=== PATIENT | female | born 1955 | race Caucasian/White ===

== ENCOUNTER 2021-03-12 16:16 | Inpatient (IN) ==
[2021-03-12] MEDS: CARDIZEM 125 MG in SODIUM CHLORIDE 100ML 100 ML IV SCH (16:40)
[2021-03-12 16:46] LABS: ABG O2 HGB 93.8 % (95-100); ABG PH 7.47 (7.35-7.45); COHb 0 (0.5-1.5); HCO3 24.7 (21-28); MetHb 0.5 (0-1.5); TCO2 25.7 (19-24); sO2 95.5 % (94-98); tHb 12.5 g/dl (11.7-17.4)
[2021-03-12] MEDS ORDERED: CARDIZEM INJ IVP ONE (17:11)
[2021-03-12] MEDS ORDERED: ADENOCARD IVP ONE (17:11)
[2021-03-12 17:34] LABS: BASOPHILS % (AUTO) 0.4 % (0.0-3.0); EOSINOPHILS # (AUTO) 0.3 K/ul (0.0-0.7); HEMATOCRIT 40.8 % (37.0-47.0); HEMOGLOBIN 12.8 g/dl (12.0-16.0); IMMATURE GRANULOCYTE % (AUTO) 0.1 % (0.0-5.0); LYMPHOCYTES # (AUTO) 2.7 K/uL (0.60-3.4); LYMPHOCYTES % (AUTO) 36.9 (10.0-50.0); MEAN CORPUSCULAR HEMOGLOBIN 27.3 pg (27.0-31.0); MEAN CORPUSCULAR HGB CONC 31.4 (31.8-35.4); MONOCYTES # (AUTO) 0.8 K/uL (0.4-2.0); MONOCYTES % (AUTO) 10.6 (0-10); NEUTROPHILS # (AUTO) 3.4 K/ul (2.0-6.9); PLATELET COUNT 184 10^3/uL (140-440); RDW COEFFICIENT OF VARIATION 14.8 % (11.6-14.8); RED BLOOD COUNT 4.69 10^6/ul (4.20-5.40); WHITE BLOOD COUNT 7.18 K/ul (4.6-10.2)
[2021-03-12 17:38] LABS: MAGNESIUM 1.67 mg/dL (1.6-2.3)
[2021-03-12 17:40] LABS: ALANINE AMINOTRANSFERASE 21.5 U/L (0-35); ALBUMIN 4.46 g/dL (3.5-5.0); ASPARTATE AMINO TRANSFERASE 32.8 U/L (14-36); BILIRUBIN,TOTAL 0.51 mg/dL (0.2-1.3); BLOOD UREA NITROGEN 14.7 mg/dL (7-17); CALCIUM 9.77 mg/dL (8.4-10.2); CARBON DIOXIDE 27.6 mmol/L (22-30.0); CHLORIDE 102.6 mmol/L (98-107); CREATINE KINASE 27.1 U/L (30-135); CREATININE 0.84 mg/dL (0.60-1.30); GLUCOSE 92.7 mg/dL (74-106); POTASSIUM 3.7 mmol/L (3.5-5.1); SODIUM 138.8 mmol/L (134.5-145); TOTAL PROTEIN 7.78 g/dL (6.3-8.2)
[2021-03-12 17:51] LABS: TROPONIN I < 0.012 ng/ml (0.0000-0.120)
[2021-03-12] MEDS ORDERED: CARDIZEM INJ IVP STA (18:16)
--- NOTE | 2021-03-12 18:22 | ED.PDOC ---
General <MÓNICA SIMENTAL DO - Last Filed: 03/12/21 20:00> ED Provider: Dr. MÓNICA SIMENTAL Chief Complaint: Shortness of Air Stated Complaint: Having rapid Heart rate; Recently has tx for Covid. Appears in SVT 12 lead EKG-Afib RVR 180 Time Seen by Provider: 03/12/21 16:43 Mode of Arrival: Walk-In Information Source: Patient Primary Care Provider: AMBER DE Referred to ED by: PCP Nursing and Triage Documentation Reviewed and Agree: Yes Does patient meet sepsis criteria?: No System Inflammatory Response Syndrome: Pulse >90 BPM and Resp >20/Minute Sepsis Protocol: For patient's 13 years and over: Temp is 96.8 and below OR 101 and greater Pulse >90 BPM Resp >20/minute Acutely Altered Mental Status Are patient's symptoms suggestive of a new infection, such as: -Pneumonia -Skin, Soft Tissue -Endocarditis -UTI -Bone, Joint Infection -Implantable Device -Acute Abdominal Infection -Wound Infection -Meningitis -Blood Stream Catheter Infection -Unknown Cardiovascular Complaint Exam <MÓNICA SIMENTAL DO - Last Filed: 03/12/21 20:00> Palpitations Complaint/Exam Onset/Duration: 6 hrs Symptoms Are: Still present Timing: Constant Initial Severity: Severe Current Severity: Severe Character: Reports Irregular and Pounding Aggravating: Reports Exertion Alleviating: Reports None Associated Signs and Symptoms: Reports Lightheadedness, Dizziness, Chest pain and Shortness of breath Cardiac Risk Factors: Reports Hypertension Pulmonary Embolism Risk Factors: Reports None Atrial Fibrillation Risk Factors: Reports Hypertension and COPD Thyroid Exam: Normal Differential Diagnoses: Panic Disorder, Hyperventilation and Paroxysmal SVT Quality Indicators for AMI: EKG in 10min. Review of Systems <DO Temitope SANTILLAN Last Filed: 03/12/21 20:00> Review Of Systems Constitutional: Reports Malaise and Weakness Eyes: Reports No symptoms and Blurred vision Ears, Nose, Mouth, Throat: Reports No symptoms Respiratory: Reports Cough, Short of air and Wheezing Cardiac: Reports Chest pain, Irregular heart rate, Lightheadedness and Palpitations GI: Reports No symptoms : Reports No symptoms Musculoskeletal: Reports No symptoms Skin: Reports No symptoms Neurological: Reports Anxiety Endocrine: Reports No symptoms All Other Systems: Reviewed and Negative PFSH <DO Temitope SANTILLAN Last Filed: 03/12/21 20:00> Medical History Depression DJD (degenerative joint disease) DM type 2 (diabetes mellitus, type 2) Dysfunction of both eustachian tubes Dyslipidemia (high LDL; low HDL) Fatigue RAYSA (generalized anxiety disorder) HTN (hypertension) Neuropathy Positional vertigo Vaginal bleeding Vertigo Family History Mother Cancer BROTHER Cancer of brain Social History Alcohol intake: unknown Substance use type: does not use Lives independently: Yes Daycare: no daycare Current gender identity: female Seatbelt use: always Water heater temperature set < 120 degrees: Yes Working smoke detector in home: Yes Fire extinguisher in home: Yes Carbon monoxide detector in home: Yes Surgical History H/O gastric bypass H/O ventral hernia repair Female Reproductive History Menstrual Hx Hysterectomy: No Hx Tubal Ligation: No Physical Exam <MÓNICA SIMENTAL DO - Last Filed: 03/12/21 20:00> Physical Exam Appearance: Reports Ill-appearing and Obese Ill-appearing: Moderate Pain Distress: Moderate Eyes: Reports MICKY, EOMI and Conjunctiva clear ENT: Reports Ears normal, Nose normal and Oropharynx normal Neck: Supple Respiratory: Reports Airway patent, Breath sounds clear and Respirations nonlabored Cardiovascular: Reports RRR, Irregular rhythm and Tachycardia GI/: Reports Soft, Nontender, No masses, Bowel sounds normal, No Organomegaly, Tender and Bowel sounds hypoactive Musculoskeletal: Reports Normal strength, ROM intact, No calf tenderness and Edema Skin: Reports Warm, Dry and Normal color Neurological: Reports Sensation intact, Motor intact, Reflexes intact, Cranial nerves intact and Alert Psychiatric: Reports Affect appropriate, Mood appropriate and Anxious Interpretation <DO Temitope SANTILLAN Last Filed: 03/12/21 20:00> Radiology Interpretation Radiology Results: No acute changes Exam Interpreted: Portable CXR EKG Interpretation Time of EKG #1: 16:19 Rate: Tachy [place]: Left ST Segment: Normal Interpretation: SVT/afib RVR Physician Notification <DO Temitope SANTILLAN Last Filed: 03/12/21 20:00> Case Discussed Physician Notified: Dr De-agreed to admit Time of Notification: 17:00 <HAKAN VELIZ MD - Last Filed: 03/12/21 22:51> Case Discussed Physician Notified: Dr De Agreed to admit Time of Notification: 21:00 (Patient is DNI so can be admitted here) <HAKAN VELIZ MD - Last Filed: 03/12/21 22:51> Critical Care Note Total Critical Care Time (mins): 60 Course <MÓNICA SIMENTAL DO - Last Filed: 03/12/21 20:00> Course Hematology/Chemistry: 03/12/21 16:48 03/12/21 16:48 Orders, Labs, Meds: Lab Review 03/12/21 03/12/21 03/12/21 16:40 16:48 16:48 WBC 7.18 RBC 4.69 Hgb 12.8 Hct 40.8 MCV 87.0 MCH 27.3 MCHC 31.4 L RDW Coeff of Arnoldo 14.8 Plt Count 184 Immature Gran % (Auto) 0.1 Neut % (Auto) 48.0 Lymph % (Auto) 36.9 [place] % (Auto) 10.6 H Eos % (Auto) 4.0 Baso % (Auto) 0.4 Neut # (Auto) 3.4 Lymph # (Auto) 2.7 [place] # (Auto) 0.8 Eos # (Auto) 0.3 Baso # (Auto) 0.0 Immature Gran # (Auto) 0.0 APTT Puncture Site [place] Excess 1.0 O2 Saturation 95.5 ABG pH 7.47 H ABG pCO2 34.0 L ABG pO2 73.0 L ABG HCO3 24.7 ABG Total CO2 25.7 H Dyll[place] Test Pos Hemoglobin 0.5 Oxyhemoglobin 93.8 L Carboxyhemoglobin 0 L Total Hemoglobin 12.5 FiO2 % 21.0 Sodium 138.8 Potassium 3.70 Chloride 102.6 Carbon Dioxide 27.6 Anion Gap 12.30 BUN 14.7 Creatinine 0.84 Estimated GFR (MDRD) 68.00 BUN/Creatinine Ratio 17.50 Glucose 92.7 Calcium 9.77 Magnesium Total Bilirubin 0.51 AST 32.8 ALT 21.5 Alkaline Phosphatase 80.0 Total Creatine Kinase 27.1 L Troponin I Total Protein 7.78 Albumin 4.46 Globulin 3.32 Albumin/Globulin Ratio 1.34 SARS CoV-2 RNA Rapid MARY 03/12/21 03/12/21 03/12/21 16:48 16:48 17:05 WBC RBC Hgb Hct MCV MCH MCHC RDW Coeff of Arnoldo Plt Count Immature Gran % (Auto) Neut % (Auto) Lymph % (Auto) [place] % (Auto) Eos % (Auto) Baso % (Auto) Neut # (Auto) Lymph # (Auto) [place] # (Auto) Eos # (Auto) Baso # (Auto) Immature Gran # (Auto) APTT 26.2 Puncture Site Base Excess O2 Saturation ABG pH ABG pCO2 ABG pO2 ABG HCO3 ABG Total CO2 [place]yll[place] Test Hemoglobin Oxyhemoglobin Carboxyhemoglobin Total Hemoglobin FiO2 % Sodium Potassium Chloride Carbon Dioxide Anion Gap BUN Creatinine Estimated GFR (MDRD) BUN/Creatinine Ratio Glucose Calcium Magnesium 1.67 Total Bilirubin AST ALT Alkaline Phosphatase Total Creatine Kinase Troponin I < 0.012 Total Protein Albumin Globulin Albumin/Globulin Ratio SARS CoV-2 RNA Rapid MARY Negative Orders Category Date Time Status ADMIT PATIENT INPATIENT .TO [facility] (MONITORED BED) ADMISSION 03/12/21 19:41 Active ADMIT PATIENT INPATIENT .TO [facility] (MONITORED BED) ADMISSION 03/12/21 21:01 Active ABG DRAW REQUEST Stat CARDIO 03/12/21 16:41 Completed ECHOCARDIOGRAM 2D-M MODE Routine CARDIO 03/12/21 19:42 Ordered EKG-(ED ONLY) Stat CARDIO 03/12/21 17:55 Completed EKG-(ED ONLY) Stat CARDIO 03/12/21 17:56 Completed EKG-(IP & OP ONLY) Routine CARDIO 03/12/21 21:11 Ordered ACTIVITY .Early Mobilization for VTE Prevention CARE 03/12/21 19:43 Completed ACTIVITY .Up ad Amy CARE 03/12/21 21:02 Active BLOOD GLUCOSE MONITORING (MED/SURG) 0630,1100,1700,2100 CARE 03/12/21 19:43 Active INCISION/WOUND CARE Q4HR CARE 03/12/21 19:42 Active INTAKE & OUTPUT Q8HR CARE 03/12/21 21:01 Active TELEMETRY MONITORING TELE CARE 03/12/21 19:41 Active TELEMETRY MONITORING TELE CARE 03/12/21 21:03 Completed VITAL SIGNS Q4HR CARE 03/12/21 21:02 Active CARDIAC DIET DIETARY 03/12/21 Breakfast Ordered REGULAR DIET DIETARY 03/12/21 Dinner Ordered ABG COOX Stat LAB 03/12/21 16:40 Completed CBC W/ AUTO DIFF DAILY@0600 LAB 03/13/21 06:00 Ordered CBC W/ AUTO DIFF DAILY@0600 LAB 03/14/21 06:00 Ordered CBC W/ AUTO DIFF Stat LAB 03/12/21 16:48 Completed CMP [COMPREHENSIVE METABOLIC PANEL] Stat LAB 03/12/21 16:48 Completed COMPREHENSIVE METABOLIC PANEL DAILY@0600 LAB 03/13/21 06:00 Ordered COMPREHENSIVE METABOLIC PANEL DAILY@0600 LAB 03/14/21 06:00 Ordered CPK [CREATINE KINASE] Stat LAB 03/12/21 16:48 Completed CREATINE KINASE Q8H LAB 03/13/21 03:15 Ordered CREATINE KINASE Q8H LAB 03/13/21 11:15 Ordered MAGNESIUM Stat LAB 03/12/21 16:48 Completed PARTIAL THROMBOPLASTIN TIME Stat LAB 03/12/21 16:48 Completed SARS COV-2 RNA RAPID MARY Stat LAB 03/12/21 17:05 Completed TROPONIN I Q8H LAB 03/13/21 01:45 Ordered TROPONIN I Q8H LAB 03/13/21 03:15 Ordered TROPONIN I Q8H LAB 03/13/21 09:45 Ordered TROPONIN I Q8H LAB 03/13/21 11:15 Ordered TROPONIN I Stat LAB 03/12/21 16:48 Completed UA [URINALYSIS C & S IF INDICATED] Stat LAB 03/12/21 22:30 Completed Acetaminophen [Tylenol] MEDS 03/12/21 21:11 Active 650 mg PO Q4H PRN Adenosine [Adenocard] MEDS 03/12/21 17:11 Discontinued 6 mg IVP ONCE ONE Apixaban [Eliquis] MEDS 03/12/21 19:42 Discontinued 5 mg PO ONCE ONE Ceftriaxone/D5w 1 gm Premix [Rocephin 1 gm/50 ml D5w] MEDS 03/12/21 22:00 Active 1 gm in 50 ml IV DAILY Dexamethasone Sod Phosphate [Decadron] MEDS 03/12/21 21:30 Active 6 mg IVP DAILY Diltiazem HCl [Cardizem Inj] MEDS 03/12/21 17:11 Discontinued 25 mg IVP ONCE ONE Diltiazem HCl [Cardizem Inj] MEDS 03/12/21 18:16 Discontinued 40 mg IVP ONCE STA Diltiazem HCl [Cardizem] 125 mg MEDS 03/12/21 17:30 Active 0.9 % Sodium Chloride [Sodium Chloride 100Ml] 100 ml IV TITRATION Doxycycline Hyclate Inj [Doxy-100] 100 mg MEDS 03/12/21 21:30 Active 0.9 % Sodium Chloride [Sodium Chloride 100Ml] 100 ml IV Q12HR Ondansetron HCl/Pf [Zofran 4 mg/2 ml] MEDS 03/12/21 21:11 Active 4 mg IVP Q6H PRN Potassium Chloride in 0.9%NaCl [Sodium Chloride 0.9%- MEDS 03/12/21 20:00 Active KCl 20 Meq] 1,000 ml IV 30 mls/hr Sotalol HCl [Betapace] MEDS 03/13/21 09:00 Active 40 mg PO BID Sotalol HCl [Betapace] MEDS 03/12/21 19:34 Discontinued 40 mg PO ONCE STA RESUSCITATION STATUS Routine OTHERS 03/12/21 19:42 Completed RESUSCITATION STATUS Routine OTHERS 03/12/21 21:01 Ordered CHEST, 1V AP ONLY Stat RADS 03/12/21 17:[address] CHEST W/O CONTRAST Stat RADS 03/12/21 18:42 Completed Medications Generic Name Dose Route Start Last Admin Trade Name Nedq PRN Reason Stop Dose Admin Acetaminophen 650 mg 03/12/21 21:11 Acetaminophen 325 Mg Tablet PO Q4H PRN Fever and Mild Pain Dexamethasone Sodium Phosphate 6 mg 03/12/21 21:30 Dexamethasone Sod Phos 10 Mg/Ml Inj IVP DAILY MAREK Diltiazem HCl 125 mg/ Sodium 125 mls @ 5 mls/hr 03/12/21 17:30 03/12/21 17:31 Chloride IV 10 mg/hr TITRATION MAREK 10 mls/hr Titration Protocol 5 MG/HR Potassium Chloride/Sodium Chloride 1,000 mls @ 30 mls/hr 03/12/21 20:00 03/12/21 22:25 Sodium Chloride 0.9%-Kcl 20 Meq IV 30 mls/hr .[id number] MAREK Administration CEFTRIAXONE/D5W 1 GM PREMIX 1 gm in 50 mls @ 75 mls/hr 03/12/21 22:00 Rocephin 1 Gm/50 Ml D5w IV 03/15/21 21:59 DAILY MAREK Doxycycline Hyclate 100 mg/ 100 mls @ 50 mls/hr 03/12/21 21:30 Sodium Chloride IV 03/15/21 21:29 Q12HR MAREK Ondansetron HCl 4 mg 03/12/21 21:11 Ondansetron Hcl/Pf 4 Mg/2 Ml Sdv IVP Q6H PRN Nausea / Vomiting Sotalol HCl 40 mg 03/13/21 09:00 Sotalol Hcl 80 Mg Tablet PO BID MAREK Discontinued Medications Generic Name Dose Route Start Last Admin Trade Name Freq PRN Reason Stop Dose Admin Adenosine 6 mg 03/12/21 17:11 03/12/21 16:25 Adenosine 12 Mg/4 Ml Vial IVP 03/12/21 17:12 6 mg ONCE ONE Administration Apixaban 5 mg 03/12/21 19:42 Apixaban 5 Mg Tab PO 03/12/21 19:43 ONCE ONE Diltiazem HCl 25 mg 03/12/21 17:11 03/12/21 16:35 Diltiazem Hcl Inj 25 Mg/5 Ml Vial IVP 03/12/21 17:12 25 mg ONCE ONE Administration Diltiazem HCl 40 mg 03/12/21 18:16 03/12/21 18:25 Diltiazem Hcl Inj 25 Mg/5 Ml Vial IVP 03/12/21 18:17 40 mg ONCE STA Administration Furosemide 20 mg 03/12/21 22:13 Furosemide Inj 20 Mg/2 Ml Vial IVP 03/12/21 22:14 ONCE ONE Sotalol HCl 40 mg 03/12/21 19:34 03/12/21 20:50 Sotalol Hcl 80 Mg Tablet PO 03/12/21 19:35 40 mg ONCE STA Administration Vital Signs: Temp Pulse Resp BP Pulse Ox 03/12/21 16:17 97.0 F L 198 H 26 H 152/98 H 98 <HAKAN VELIZ MD - Last Filed: 03/12/21 22:51> Course Orders, Labs, Meds: Lab Review 03/12/21 03/12/21 03/12/21 16:40 16:48 16:48 WBC 7.18 RBC 4.69 Hgb 12.8 Hct 40.8 MCV 87.0 MCH 27.3 MCHC 31.4 L RDW Coeff of Arnoldo 14.8 Plt Count 184 Immature Gran % (Auto) 0.1 Neut % (Auto) 48.0 Lymph % (Auto) 36.9 [place] % (Auto) 10.6 H Eos % (Auto) 4.0 Baso % (Auto) 0.4 Neut # (Auto) 3.4 Lymph # (Auto) 2.7 [place] # (Auto) 0.8 Eos # (Auto) 0.3 Baso # (Auto) 0.0 Immature Gran # (Auto) 0.0 APTT Puncture Site [place] Excess 1.0 O2 Saturation 95.5 ABG pH 7.47 H ABG pCO2 34.0 L ABG pO2 73.0 L ABG HCO3 24.7 ABG Total CO2 25.7 H D[place] Test Pos Hemoglobin 0.5 Oxyhemoglobin 93.8 L Carboxyhemoglobin 0 L Total Hemoglobin 12.5 FiO2 % 21.0 Sodium 138.8 Potassium 3.70 Chloride 102.6 Carbon Dioxide 27.6 Anion Gap 12.30 BUN 14.7 Creatinine 0.84 Estimated GFR (MDRD) 68.00 BUN/Creatinine Ratio 17.50 Glucose 92.7 Calcium 9.77 Magnesium Total Bilirubin 0.51 AST 32.8 ALT 21.5 Alkaline Phosphatase 80.0 Total Creatine Kinase 27.1 L Troponin I Total Protein 7.78 Albumin 4.46 Globulin 3.32 Albumin/Globulin Ratio 1.34 SARS CoV-2 RNA Rapid MARY 03/12/21 03/12/21 03/12/21 16:48 16:48 17:05 WBC RBC Hgb Hct MCV MCH MCHC RDW Coeff of Arnoldo Plt Count Immature Gran % (Auto) Neut % (Auto) Lymph % (Auto) [place] % (Auto) Eos % (Auto) Baso % (Auto) Neut # (Auto) Lymph # (Auto) [place] # (Auto) Eos # (Auto) Baso # (Auto) Immature Gran # (Auto) APTT 26.2 Puncture Site Base Excess O2 Saturation ABG pH ABG pCO2 ABG pO2 ABG HCO3 ABG Total CO2 [place] Test Hemoglobin Oxyhemoglobin Carboxyhemoglobin Total Hemoglobin FiO2 % Sodium Potassium Chloride Carbon Dioxide Anion Gap BUN Creatinine Estimated GFR (MDRD) BUN/Creatinine Ratio Glucose Calcium Magnesium 1.67 Total Bilirubin AST ALT Alkaline Phosphatase Total Creatine Kinase Troponin I < 0.012 Total Protein Albumin Globulin Albumin/Globulin Ratio SARS CoV-2 RNA Rapid MARY Negative Orders Category Date Time Status ADMIT PATIENT INPATIENT .TO [facility] (MONITORED BED) ADMISSION 03/12/21 19:41 Active ADMIT PATIENT INPATIENT .TO [facility] (MONITORED BED) ADMISSION 03/12/21 21:01 Active ABG DRAW REQUEST Stat CARDIO 03/12/21 16:41 Completed ECHOCARDIOGRAM 2D-M MODE Routine CARDIO 03/12/21 19:42 Ordered EKG-(ED ONLY) Stat CARDIO 03/12/21 17:55 Completed EKG-(ED ONLY) Stat CARDIO 03/12/21 17:56 Completed EKG-(IP & OP ONLY) Routine CARDIO 03/12/21 21:11 Ordered ACTIVITY .Early Mobilization for VTE Prevention CARE 03/12/21 19:43 Completed ACTIVITY .Up ad Aym CARE 03/12/21 21:02 Active BLOOD GLUCOSE MONITORING (MED/SURG) 0630,1100,1700,2100 CARE 03/12/21 19:43 Active INCISION/WOUND CARE Q4HR CARE 03/12/21 19:42 Active INTAKE & OUTPUT Q8HR CARE 03/12/21 21:01 Active TELEMETRY MONITORING TELE CARE 03/12/21 19:41 Active TELEMETRY MONITORING TELE CARE 03/12/21 21:03 Completed VITAL SIGNS Q4HR CARE 03/12/21 21:02 Active CARDIAC DIET DIETARY 03/12/21 Breakfast Ordered REGULAR DIET DIETARY 03/12/21 Dinner Ordered ABG COOX Stat LAB 03/12/21 16:40 Completed CBC W/ AUTO DIFF DAILY@0600 LAB 03/13/21 06:00 Ordered CBC W/ AUTO DIFF DAILY@0600 LAB 03/14/21 06:00 Ordered CBC W/ AUTO DIFF Stat LAB 03/12/21 16:48 Completed CMP [COMPREHENSIVE METABOLIC PANEL] Stat LAB 03/12/21 16:48 Completed COMPREHENSIVE METABOLIC PANEL DAILY@0600 LAB 03/13/21 06:00 Ordered COMPREHENSIVE METABOLIC PANEL DAILY@0600 LAB 03/14/21 06:00 Ordered CPK [CREATINE KINASE] Stat LAB 03/12/21 16:48 Completed CREATINE KINASE Q8H LAB 03/13/21 03:15 Ordered CREATINE KINASE Q8H LAB 03/13/21 11:15 Ordered MAGNESIUM Stat LAB 03/12/21 16:48 Completed PARTIAL THROMBOPLASTIN TIME Stat LAB 03/12/21 16:48 Completed SARS COV-2 RNA RAPID MARY Stat LAB 03/12/21 17:05 Completed TROPONIN I Q8H LAB 03/13/21 01:45 Ordered TROPONIN I Q8H LAB 03/13/21 03:15 Ordered TROPONIN I Q8H LAB 03/13/21 09:45 Ordered TROPONIN I Q8H LAB 03/13/21 11:15 Ordered TROPONIN I Stat LAB 03/12/21 16:48 Completed UA [URINALYSIS C & S IF INDICATED] Stat LAB 03/12/21 22:30 Completed Acetaminophen [Tylenol] MEDS 03/12/21 21:11 Active 650 mg PO Q4H PRN Adenosine [Adenocard] MEDS 03/12/21 17:11 Discontinued 6 mg IVP ONCE ONE Apixaban [Eliquis] MEDS 03/12/21 19:42 Discontinued 5 mg PO ONCE ONE Ceftriaxone/D5w 1 gm Premix [Rocephin 1 gm/50 ml D5w] MEDS 03/12/21 22:00 Active 1 gm in 50 ml IV DAILY Dexamethasone Sod Phosphate [Decadron] MEDS 03/12/21 21:30 Active 6 mg IVP DAILY Diltiazem HCl [Cardizem Inj] MEDS 03/12/21 17:11 Discontinued 25 mg IVP ONCE ONE Diltiazem HCl [Cardizem Inj] MEDS 03/12/21 18:16 Discontinued 40 mg IVP ONCE STA Diltiazem HCl [Cardizem] 125 mg MEDS 03/12/21 17:30 Active 0.9 % Sodium Chloride [Sodium Chloride 100Ml] 100 ml IV TITRATION Doxycycline Hyclate Inj [Doxy-100] 100 mg MEDS 03/12/21 21:30 Active 0.9 % Sodium Chloride [Sodium Chloride 100Ml] 100 ml IV Q12HR Ondansetron HCl/Pf [Zofran 4 mg/2 ml] MEDS 03/12/21 21:11 Active 4 mg IVP Q6H PRN Potassium Chloride in 0.9%NaCl [Sodium Chloride 0.9%- MEDS 03/12/21 20:00 Active KCl 20 Meq] 1,000 ml IV 30 mls/hr Sotalol HCl [Betapace] MEDS 03/13/21 09:00 Active 40 mg PO BID Sotalol HCl [Betapace] MEDS 03/12/21 19:34 Discontinued 40 mg PO ONCE STA RESUSCITATION STATUS Routine OTHERS 03/12/21 19:42 Completed RESUSCITATION STATUS Routine OTHERS 03/12/21 21:01 Ordered CHEST, 1V AP ONLY Stat RADS 03/12/21 17:[address] CHEST W/O CONTRAST Stat RADS 03/12/21 18:42 Completed Medications Generic Name Dose Route Start Last Admin Trade Name Kady PRN Reason Stop Dose Admin Acetaminophen 650 mg 03/12/21 21:11 Acetaminophen 325 Mg Tablet PO Q4H PRN Fever and Mild Pain Dexamethasone Sodium Phosphate 6 mg 03/12/21 21:30 Dexamethasone Sod Phos 10 Mg/Ml Inj IVP DAILY MAREK Diltiazem HCl 125 mg/ Sodium 125 mls @ 5 mls/hr 03/12/21 17:30 03/12/21 17:31 Chloride IV 10 mg/hr TITRATION MAREK 10 mls/hr Titration Protocol 5 MG/HR Potassium Chloride/Sodium Chloride 1,000 mls @ 30 mls/hr 03/12/21 20:00 03/12/21 22:25 Sodium Chloride 0.9%-Kcl 20 Meq IV 30 mls/hr .[id number] MAREK Administration CEFTRIAXONE/D5W 1 GM PREMIX 1 gm in 50 mls @ 75 mls/hr 03/12/21 22:00 Rocephin 1 Gm/50 Ml D5w IV 03/15/21 21:59 DAILY MAREK Doxycycline Hyclate 100 mg/ 100 mls @ 50 mls/hr 03/12/21 21:30 Sodium Chloride IV 03/15/21 21:29 Q12HR MAREK Ondansetron HCl 4 mg 03/12/21 21:11 Ondansetron Hcl/Pf 4 Mg/2 Ml Sdv IVP Q6H PRN Nausea / Vomiting Sotalol HCl 40 mg 03/13/21 09:00 Sotalol Hcl 80 Mg Tablet PO BID MAREK Discontinued Medications Generic Name Dose Route Start Last Admin Trade Name Kady PRN Reason Stop Dose Admin Adenosine 6 mg 03/12/21 17:11 03/12/21 16:25 Adenosine 12 Mg/4 Ml Vial IVP 03/12/21 17:12 6 mg ONCE ONE Administration Apixaban 5 mg 03/12/21 19:42 Apixaban 5 Mg Tab PO 03/12/21 19:43 ONCE ONE Diltiazem HCl 25 mg 03/12/21 17:11 03/12/21 16:35 Diltiazem Hcl Inj 25 Mg/5 Ml Vial IVP 03/12/21 17:12 25 mg ONCE ONE Administration Diltiazem HCl 40 mg 03/12/21 18:16 03/12/21 18:25 Diltiazem Hcl Inj 25 Mg/5 Ml Vial IVP 03/12/21 18:17 40 mg ONCE STA Administration Furosemide 20 mg 03/12/21 22:13 Furosemide Inj 20 Mg/2 Ml Vial IVP 03/12/21 22:14 ONCE ONE Sotalol HCl 40 mg 03/12/21 19:34 03/12/21 20:50 Sotalol Hcl 80 Mg Tablet PO 03/12/21 19:35 40 mg ONCE STA Administration Vital Signs: Temp Pulse Resp BP Pulse Ox 03/12/21 16:17 97.0 F L 198 H 26 H 152/98 H 98 VEGA Risk Score <MÓNICA SIMENTAL DO - Last Filed: 03/12/21 20:00> VEGA Risk Score: Risk Score Odds of by 30D 0 0.1 (0.1-0.2) 1 0.3 (0.2-0.3) 2 0.4 (0.3-0.5) 3 0.7 (0.6-0.9) 4 1.2 (1.0-1.5) 5 2.2 (1.9-2.6) 6 3.0 (2.5-3.6) 7 4.8 (3.8-6.1) Discharge Plan Discharge Patient Disposition: ADMITTED INPATIENT Discharge Problem: Atrial fibrillation with rapid ventricular response ED Provider: MÓNICA SIMENTAL Condition: Fair <MÓNICA SIMENTAL DO - Last Filed: 03/12/21 20:00> Physician Progress Note: Discussed with Dr De-came to hospital to see patient for admission 7:[address] De and explained all Imaging results/ Will come in to evaluate before admission []
--- NOTE | 2021-03-12 19:20 | CT ---
EXAM: Noncontrast chest CT HISTORY: Short of air COMPARISON: Same day chest x-ray TECHNIQUE: Axial noncontrast CT of the chest with sagittal and coronal reformats. FINDINGS: Trace right pleural effusions are identified, right greater than left. Multifocal bilateral tree-in- bud opacities are identified. There are also bilateral ground-glass opacities and areas of patchy co nsolidation within the upper lobes and both lower lobes. Mild basilar interstitial low thickening is identified. No pneumothorax is seen. A right lower lobe calcified granuloma is noted. The heart is borderline enlarged. Atherosclerotic calcifications are present including coronary vernell feroz. There is a 1.1 cm pretracheal lymph node. A 1.3 cm subcarinal lymph node is noted. Limited evaluati on of the wilfredo due to lack of IV contrast. Gallstones are seen. Punctate left renal calculus. Operative changes of gastric bypass surgery. De generative changes of the spine are noted. IMPRESSION: Multifocal pneumonia. Trace pleural effusions. Mild interlobular septal thickening suggesting a possible component of interstitial edema. Mild mediastinal lymphadenopathy. Cholelithiasis. Left renal calculus. All CT scans are performed using dose optimization techniques as appropriate to the performed exam an d include at least one of the following: Automated exposure control, adjustment of the mA and/or kV according t o size, and the use of iterative reconstruction technique.
[2021-03-12] MEDS ORDERED: BETAPACE PO STA (19:34)
[2021-03-12] MEDS ORDERED: ELIQUIS PO ONE (19:42)
[2021-03-12] MEDS ORDERED: SODIUM CHLORIDE 0.9%-KCL 20 MEQ 1,000 ML IV SCH (20:00)
[2021-03-12] MEDS ORDERED: TYLENOL PO PRN (21:11)
[2021-03-12] MEDS ORDERED: ZOFRAN 4 MG/2 ML IVP PRN (21:11)
[2021-03-12] MEDS ORDERED: ROCEPHIN 1 GM/50 ML D5W 1 GM/50 ML BAG IV SCH (22:00)
[2021-03-12] MEDS ORDERED: SODIUM CHLORIDE 1,000 ML IV SCH (22:00)
[2021-03-12] MEDS ORDERED: LASIX IVP ONE (22:13)
[2021-03-12 22:49] LABS: BILIRUBIN,URINE Negative (NEGATIVE); CLARITY,URINE Clear (CLEAR); COLOR,URINE Yellow (YELLOW); GLUCOSE, URINE (UA) Negative (NEGATIVE); KETONES,URINE Negative (NEGATIVE); LEUKOCYTE ESTERASE ,URINE Negative (NEGATIVE); NITRITE,URINE Negative (NEGATIVE); PH,URINE 5.5 (5-9); PROTEIN,URINE Negative (NEGATIVE); URINE, BLOOD Negative (NEGATIVE); UROBILINOGEN,URINE 0.2 (0.2)
[2021-03-12] MEDS ORDERED: BUMEX PO PRN (22:51)
[2021-03-12 22:55] VITALS: BMI 40.6
[2021-03-12] MEDS ORDERED: ZESTRIL PO SCH (23:00)
[2021-03-12] MEDS: DECADRON IVP SCH (23:16)
[2021-03-12] MEDS: DOXY-100 100 MG in SODIUM CHLORIDE 100ML 100 ML IV SCH (23:58)
[2021-03-13] MEDS: CYMBALTA PO SCH ×2 (00:07→09:39)
[2021-03-13] MEDS: XANAX PO PRN ×2 (00:09→20:07)
[2021-03-13 03:13] LABS: BASOPHILS % (AUTO) 0.5 % (0.0-3.0); EOSINOPHILS # (AUTO) 0.1 K/ul (0.0-0.7); EOSINOPHILS % (AUTO) 2.9 % (0.0-7.0); HEMOGLOBIN 12.1 g/dl (12.0-16.0); LYMPHOCYTES # (AUTO) 0.9 K/uL (0.60-3.4); LYMPHOCYTES % (AUTO) 23.5 (10.0-50.0); MEAN CORPUSCULAR HEMOGLOBIN 27.3 pg (27.0-31.0); MEAN CORPUSCULAR HGB CONC 31.8 (31.8-35.4); MEAN CORPUSCULAR VOLUME 85.8 fl (81.0-99.0); MONOCYTES # (AUTO) 0.2 K/uL (0.4-2.0); MONOCYTES % (AUTO) 5.5 (0-10); NEUTROPHILS # (AUTO) 2.6 K/ul (2.0-6.9); NEUTROPHILS % (AUTO) 67.6 % (42.2-75.2); PLATELET COUNT 139 10^3/uL (140-440); RDW COEFFICIENT OF VARIATION 14.6 % (11.6-14.8); RED BLOOD COUNT 4.43 10^6/ul (4.20-5.40); WHITE BLOOD COUNT 3.79 K/ul (4.6-10.2)
[2021-03-13] MEDS: CARDIZEM 125 MG in SODIUM CHLORIDE 100ML 100 ML IV SCH ×2 (03:31→18:18)
[2021-03-13 03:58] LABS: ALBUMIN 3.9 g/dL (3.5-5.0); BILIRUBIN,TOTAL 0.7 mg/dL (0.2-1.3); CALCIUM 9.2 mg/dL (8.4-10.2); CREATININE 0.7 mg/dL (0.60-1.30); POTASSIUM 4.4 mmol/L (3.5-5.1); TOTAL PROTEIN 7.2 g/dL (6.3-8.2)
--- NOTE | 2021-03-13 07:14 | DI ---
EXAM: One view chest. HISTORY: Atrial fibrillation COMPARISON: 09/16/2014 chest x-ray. FINDINGS: The cardiac silhouette is upper limits normal. Scattered patchy markings are present with in both mid to lower lungs. There is no pleural effusion present. Degenerative changes are present throughout the osseous structures. IMPRESSION: Bilateral multi focal pneumonia.
[2021-03-13] MEDS ORDERED: ZESTRIL PO SCH (09:00)
[2021-03-13] MEDS ORDERED: LANOXIN IVP ONE (09:05)
[2021-03-13 09:34] LABS: ABG PH 7.41 (7.35-7.45); BEecf 1.4 (-2.0-3.0)
[2021-03-13 09:35] LABS: ABG O2 HGB 93.8 % (95-100); COHb 0.6 (0.5-1.5); MetHb 0 (0-1.5); TCO2 27.3 (19-24); sO2 95.5 % (94-98); tHb 12.3 g/dl (11.7-17.4)
[2021-03-13] MEDS: NORCO 5-325 PO SCH ×2 (09:37→20:07)
[2021-03-13] MEDS: MULTIVITAMIN TABLET PO SCH (09:37)
[2021-03-13] MEDS: BETAPACE PO SCH ×2 (09:38→20:06)
[2021-03-13] MEDS: FERROUS SULFATE PO SCH (09:38)
[2021-03-13] MEDS: GLUCOPHAGE PO SCH ×2 (09:38→17:50)
[2021-03-13] MEDS: K-DUR PO SCH (09:38)
[2021-03-13] MEDS: CARDIZEM PO SCH ×2 (09:38→20:06)
[2021-03-13] MEDS: ZESTRIL PO SCH (09:38)
[2021-03-13] MEDS: DECADRON IVP SCH (09:39)
[2021-03-13] MEDS: ELIQUIS PO SCH ×2 (09:39→20:06)
--- NOTE | 2021-03-13 09:43 | PCM.PROG ---
Attending Provider: ATTENDING PROVIDER: Dr. AMBER AGUILLON DATE OF SERVICE: 03/13/21 SUBJECTIVE: This 65 year old /WHITE F was hospitalized 03/12/21 with atrial fibrillation with rapid ventricular response. The patient is also complaining of shortness of breath. She experienced palpitation for one week. She denies any fever or chills. No PND. She was COVID positive February 20 and is now COVID n egative. CT scan showed bilateral patchy infiltrates consistent with post COVID. REVIEW OF SYSTEMS: CONSTITUTIONAL: No night sweats. No fatigue, malaise, lethargy. No fever or chills. Feeling a lot better. HEENT: Eyes: No visual changes. No eye pain. No eye discharge. ENT: No runny nose. No epistaxis. No sinus pain. No odynophagia. No congestion. RESPIRATORY: No cough, no congestion. No hemoptysis. No shortness of breath. CARDIOVASCULAR: No angina symptoms. No CHF symptoms. No atypical chest pain for CAD. No palpitations. No orthopnea.. GASTROINTESTINAL: No abdominal pain. No nausea or vomiting. No diarrhea or constipation. No hematemesis. No hematochezia. Appetite returning towards normal. GENITOURINARY: No urgency. No frequency. No dysuria. No hematuria. No obstructive symptoms. No discharge. No pain. No significant abnormal bleeding. MUSCULOSKELETAL: No musculoskeletal pain; no joint swelling. NEUROLOGICAL: Awake, alert, oriented to time, place and person. No headache. No neck pain. No syncope. No seizures. No dizziness. PSYCHIATRIC: Not anxious. No depression. No suicidal thoughts. No homicidal thoughts. SKIN: No rash. No lesions. No wounds. ENDOCRINE: No unexplained weight loss. No weight gain. HEMATOLOGIC/LYMPHATIC: No anemia. No purpura. No petechiae. No prolonged or excessive bleeding. No palpable lymph nodes. PHYSICAL EXAMINATION: GENERAL: The patient is awake, alert and oriented, lying in bed in no distress. VITAL SIGNS: Temperature 96.5 F, Pulse 124, Respiratory Rate 26, BP 123/85, Pulse Ox 91% HEENT: Head normocephalic, atraumatic. Eyes: Extraocular muscles are intact. Pupils are equal, round and reactive to light and accommodation. Ears: No lesions. Nose appeared normal. Throat: No exudate or erythema. NECK: Supple. No JVD, no carotid bruit. No lymphadenopathy or thyromegaly. LUNGS: Decreased breath sounds with dry crepitations bilaterally. Clear to auscultation. Percussion note normal. Chest symmetrical. HEART: S1, S2, no S3. No murmurs. Telemetry showed atrial fibrillation with rate of 120 per minute. No cyanosis or clubbing. No ascites. Pulses: Dorsalis pedis and posterior tibial pulses +1 to +2 both sides. ABDOMEN: Soft. Non-tender. Bowel sounds active. No CVA tenderness. No mass felt. EXTREMITIES: No edema. Full range of motion of all extremities, equal. NEUROLOGIC: No focal deficit. Cranial nerves II through XII are grossly intact. No headache, no double vision or headache. SKIN: Warm and dry. Intact. Turgor-normal. LYMPHATIC: No palpable lymph nodes/no lymphedema. MUSCULOSKELETAL: Normal joints with no swelling. Muscle tone is normal. LAB REVIEW: 03/13/21 03:12 03/13/21 03:12 03/13/21 03:12: Total Creatine Kinase 26.0 L, POC Venous Troponin I 0.00 03/13/21 03:12: Sodium 138.0, Potassium 4.40, Chloride 103.0, Carbon Dioxide 28.0, Anion Gap 11.40, BUN 13.0, Creatinine 0.70, Estimated GFR (MDRD) 84.00, BUN/Creatinine Ratio 18.57, Glucose 172.0 H D, Calcium 9.20, Total Bilirubin 0 .70, AST 30.0, ALT 22.0, Alkaline Phosphatase 73.0, Total Protein 7.20, Albumin 3.90, Globulin 3.30, Albumin/Globulin Ratio 1.18 03/13/21 03:12: WBC 3.79 L, RBC 4.43, Hgb 12.1, Hct 38.0, MCV 85.8, MCH 27.3, MCHC 31.8, RDW Coeff of Arnoldo 14.6, Plt Count 139 L, Immature Gran % (Auto) 0.0, Neut % (Auto) 67.6, Lymph % (Auto) 23.5, [place] % (Auto) 5.5, Eos % (Auto) 2.9, Baso % (Auto) 0.5, Neut # (Auto) 2.6, Lymph # (Auto) 0.9, [place] # (Auto) 0.2 L, Eos # (Auto) 0.1, Baso # (Auto) 0.0, Immature Gran # (Auto) 0.0 03/12/21 22:30: Urine Color Yellow, Urine Clarity Clear, Urine pH 5.5, Ur Specific [place] 1.020, Urine Protein Negative, Urine Glucose (UA) Negative, Urine Ketones Negative, Urine Blood Negative, Urine Nitrite Negative, Urine Bilirubin Negative, Urine Urobilinogen 0.2, Ur Leukocyte Esterase Negative 03/12/21 17:05: SARS CoV-2 RNA Rapid MARY Negative 03/12/21 16:48: Magnesium 1.67, Troponin I < 0.012 03/12/21 16:48: APTT 26.2 03/12/21 16:48: Sodium 138.8, Potassium 3.70, Chloride 102.6, Carbon Dioxide 27.6, Anion Gap 12.30, BUN 14.7, Creatinine 0.84, Estimated GFR (MDRD) 68.00, BUN/Creatinine Ratio 17.50, Glucose 92.7, Calcium 9.77, Total Bilirubin 0.51, AST 32.8, ALT 21.5, Alkaline Phosphatase 80.0, Total Creatine Kinase 27.1 L, Total Protein 7.78, Albumin 4.46, Globulin 3.32, Albumin/Globulin Ratio 1.34 03/12/21 16:48: WBC 7.18, RBC 4.69, Hgb 12.8, Hct 40.8, MCV 87.0, MCH 27.3, MCHC 31.4 L, RDW Coeff of Arnoldo 14.8, Plt Count 184, Immature Gran % (Auto) 0.1, Neut % (Auto) 48.0, Lymph % (Auto) 36.9, [place] % (Auto) 10.6 H, Eos % (Auto) 4.0, Baso % (Auto) 0.4, Neut # (Auto) 3.4, Lymph # (Auto) 2.7, [place] # (Auto) 0.8, Eos # (Auto) 0.3, Baso # (Auto) 0.0, Immature Gran # (Auto) 0.0 03/12/21 16:40: Puncture Site Lrad, Base Excess 1.0, O2 Saturation 95.5, ABG pH 7.47 H, ABG pCO2 34.0 L, ABG pO2 73.0 L, ABG HCO3 24.7, ABG Total CO2 25.7 H, Dyllan Test Pos, Hemoglobin 0.5, Oxyhemoglobin 93.8 L, Carboxyhemoglobin 0 L, Total Hemoglobin 12.5, FiO2 % 21.0 ASSESSMENT: Please see below. 1. Atrial fibrillation with rapid ventricular response 2. History of atrial fibrillation with ablation 2013 been on Eliquis. The patient has paroxysmal atrial fibrillation off and on. 3. Hypertension 4. Morbid obesity BMI 40 PLAN: 1. Wean off Cardizem 2. Cardizem 20mg PO BID 3. Zestril 10mg PO daily so that we can get room for Betablocker or Puma Betablocker 4. Lanoxin 250mcg 5. ABG on 2 liters 6. Echo Plan and coordination of the patient's care discussed in the presence of Gray Tender and nurse. CONDITION: Stable. SCRIBED BY: BLADIMIR HINOJOSA Change Analyst scribed while in presence of service performed by Dr. AMBER AGUILLON on 03/13/21 ([id number])
[2021-03-13] MEDS: DOXY-100 100 MG in SODIUM CHLORIDE 100ML 100 ML IV SCH ×2 (09:45→20:57)
[2021-03-13 12:40] LABS: CREATINE KINASE < 20.0 U/L (30-135); TROPONIN I < 0.012 ng/ml (0.0000-0.120)
[2021-03-13 13:46] LABS: TROPONIN I < 0.012 ng/ml (0.0000-0.120)
--- NOTE | 2021-03-13 14:33 | PN ---
DATE OF SERVICE: 03/12/2021 ADMIT NOTE SUBJECTIVE: The patient was seen and examined in the emergency room. She was brought to the emergency room with history having shortness of air and palpitations and atrial fibrillation with rate of 180 per minute. Given couple of IV Cardizem doses 20mg and 10mg with continuous 10 mcg per minute drip. Her blood pressure systolic is 140. The rate has come down to 110. Has been given 40mg Betapace PO. The patient has history of ablation done 2012. History of paroxysmal atrial fibrillation. She is on Apixaban. Other significant history the patient had COVID positive in February 20 and went through some congestion but she has recovered completely. She is COVID negative now. We are waiting for CT scan of the chest report on [place]. She wants DNI. She doesn't want intubation but other efforts to be done for CPR. At present time the patient doesn't feel and doesn't have symptoms of CHF. She has atrial fibrillation with rapid ventricular response which needs to be controlled. Blood pressure needs to be better controlled. The patient is on PO 90mg twice a day Cardizem. We may to increase the dose or add Coreg or Betapace. The patient has been thoroughly explained about compliance. The patient is noncompliant of medications, lifestyle, complications of atrial fibrillation discussed. Advised to continue to take Apixaban. The patient is going to be admitted with Routine telemetry orders which would include oximetry, telemetry monitoring and cardiac markers. The patient's CT scan of the chest report came back which showed patchy infiltrate bilaterally, likely very consistent with COVID status and has no symptoms of pneumonia, not in any distress at present time. In fact in the emergency room she indicated that she was hungry so she is eating and her oxygen saturation on room air is 95-96% with pO2 70 as indicated by the blood test. This fibrosis or changes could be progressive which remains to be seen. Indicated to the patient but there are no beds at [facility] or [facility] besides she indicated that she does not want to be transferred to any other hospitals. She would like to have her treatment given at [facility] in the hospital if it is needed otherwise she is going home. ASSESSMENT/PLAN: 1. Atrial fibrillation with rapid ventricular response. 2. The patient has already been given 30mg IV Cardizem and she is on 10mcg drip. Betapace 40mg given PO now twice a day. 3. The patient's heart rate is 100 per minute now according to Dr. Noyola who followed Dr. Garcia. 4. We will put the patient on Rocephin and Doxycycline 5. Dexamethasone 6mg daily 6. Continue the rest of the home medications as before 7. 20mg IV Lasix. 8. There is no indication of CHF at present time. 9. The patient is DNI. CONDITION: Stable. now. TIME SPENT: More than 30 minutes. Plan and coordination of the patient's care discussed in the presence of nurse. LEATHA
[2021-03-13] MEDS ORDERED: ROCEPHIN 1 GM/50 ML D5W 1 GM/50 ML BAG IV SCH (21:00)
[2021-03-14 05:16] LABS: BASOPHILS % (AUTO) 0.2 % (0.0-3.0); HEMOGLOBIN 11.9 g/dl (12.0-16.0); IMMATURE GRANULOCYTE % (AUTO) 0.2 % (0.0-5.0); LYMPHOCYTES # (AUTO) 0.9 K/uL (0.60-3.4); LYMPHOCYTES % (AUTO) 18.4 (10.0-50.0); MEAN CORPUSCULAR HEMOGLOBIN 27.4 pg (27.0-31.0); MEAN CORPUSCULAR HGB CONC 31.3 (31.8-35.4); MEAN CORPUSCULAR VOLUME 87.6 fl (81.0-99.0); MONOCYTES # (AUTO) 0.3 K/uL (0.4-2.0); MONOCYTES % (AUTO) 6.1 (0-10); NEUTROPHILS # (AUTO) 3.8 K/ul (2.0-6.9); NEUTROPHILS % (AUTO) 75.1 % (42.2-75.2); PLATELET COUNT 134 10^3/uL (140-440); RDW COEFFICIENT OF VARIATION 14.4 % (11.6-14.8); RED BLOOD COUNT 4.34 10^6/ul (4.20-5.40); WHITE BLOOD COUNT 5.05 K/ul (4.6-10.2)
[2021-03-14 05:28] LABS: ALANINE AMINOTRANSFERASE 29.9 U/L (0-35); ALBUMIN 3.91 g/dL (3.5-5.0); ALKALINE PHOSPHATASE 69.8 U/L (53-141); ASPARTATE AMINO TRANSFERASE 30.3 U/L (14-36); BILIRUBIN,TOTAL 0.48 mg/dL (0.2-1.3); BLOOD UREA NITROGEN 20.8 mg/dL (7-17); CALCIUM 9.63 mg/dL (8.4-10.2); CHLORIDE 104.5 mmol/L (98-107); CREATININE 0.56 mg/dL (0.60-1.30); GLUCOSE 166.8 mg/dL (74-106); POTASSIUM 4.78 mmol/L (3.5-5.1); SODIUM 136.9 mmol/L (134.5-145); TOTAL PROTEIN 6.95 g/dL (6.3-8.2)
[2021-03-14] MEDS: DOXY-100 100 MG in SODIUM CHLORIDE 100ML 100 ML IV SCH (08:51)
[2021-03-14] MEDS: CARDIZEM PO SCH (08:51)
[2021-03-14] MEDS: ZESTRIL PO SCH (08:52)
[2021-03-14] MEDS: MULTIVITAMIN TABLET PO SCH (08:52)
[2021-03-14] MEDS: GLUCOPHAGE PO SCH (08:52)
[2021-03-14] MEDS: K-DUR PO SCH (08:52)
[2021-03-14] MEDS: CYMBALTA PO SCH (08:52)
[2021-03-14] MEDS: BETAPACE PO SCH (08:52)
[2021-03-14] MEDS: FERROUS SULFATE PO SCH (08:52)
[2021-03-14] MEDS: ELIQUIS PO SCH (08:53)
[2021-03-14] MEDS: NORCO 5-325 PO SCH (08:53)
[2021-03-14] MEDS: DECADRON IVP SCH (09:11)
--- NOTE | 2021-03-14 10:00 | PCM.PROG ---
Attending Provider: ATTENDING PROVIDER: Dr. AMEBR AGUILLON DATE OF SERVICE: 03/14/21 SUBJECTIVE: This 65 year old /WHITE F was hospitalized 03/12/21 with atrial fibrillation with rapid ventricular response with rate of 190 per minute. The patient's condition has improved. She is breathing better. Oxygen saturation is 94% on 2 liters. Pulse is 97 per minute. REVIEW OF SYSTEMS: CONSTITUTIONAL: No night sweats. No fatigue, malaise, lethargy. No fever or chills. HEENT: Eyes: No visual changes. No eye pain. No eye discharge. ENT: No runny nose. No epistaxis. No sinus pain. No odynophagia. No congestion. RESPIRATORY: No cough, no congestion. No hemoptysis. No shortness of breath. CARDIOVASCULAR: No angina symptoms. No CHF symptoms. No atypical chest pain for CAD. No palpitations. No orthopnea.. GASTROINTESTINAL: No abdominal pain. No nausea or vomiting. No diarrhea or constipation. No hematemesis. No hematochezia. GENITOURINARY: No urgency. No frequency. No dysuria. No hematuria. No obstructive symptoms. No discharge. No pain. No significant abnormal bleeding. MUSCULOSKELETAL: No musculoskeletal pain; no joint swelling. NEUROLOGICAL: Awake, alert, oriented to time, place and person. No headache. No neck pain. No syncope. No seizures. No dizziness. PSYCHIATRIC: Not anxious. No depression. No suicidal thoughts. No homicidal thoughts. SKIN: No rash. No lesions. No wounds. ENDOCRINE: No unexplained weight loss. No weight gain. HEMATOLOGIC/LYMPHATIC: No anemia. No purpura. No petechiae. No prolonged or excessive bleeding. No palpable lymph nodes. PHYSICAL EXAMINATION: GENERAL: The patient is awake, alert and oriented, sitting in bed in no distress. VITAL SIGNS: Temperature 96.6 F, Pulse 97, Respiratory Rate 20, BP 117/59, Pulse Ox 94% HEENT: Head normocephalic, atraumatic. Eyes: Extraocular muscles are intact. Pupils are equal, round and reactive to light and accommodation. Ears: No lesions. Nose appeared normal. Throat: No exudate or erythema. NECK: Supple. No JVD, no carotid bruit. No lymphadenopathy or thyromegaly. LUNGS: Dry crepitations bilaterally with good air entry better than admission. Percussion note normal. Chest symmetrical. HEART: Irregular heart rate. S1, S2, no S3. No murmurs. No cyanosis or clubbing. No ascites. Pulses: Dorsalis pedis and posterior tibial pulses +1 to +2 both sides. ABDOMEN: Soft. Non-tender. Bowel sounds active. No CVA tenderness. No mass felt. EXTREMITIES: No edema. Full range of motion of all extremities, equal. NEUROLOGIC: No focal deficit. Cranial nerves II through XII are grossly intact. No headache, no double vision or headache. SKIN: Warm and dry. Intact. Turgor-normal. LYMPHATIC: No palpable lymph nodes/no lymphedema. MUSCULOSKELETAL: Normal joints with no swelling. Muscle tone is normal. LAB REVIEW: 03/14/21 04:37 03/14/21 04:37 03/14/21 04:37: Sodium 136.9, Potassium 4.78, Chloride 104.5, Carbon Dioxide 26.0, Anion Gap 11.18, BUN 20.8 H, Creatinine 0.56 L, Estimated GFR (MDRD) 109.00, BUN/Creatinine Ratio 37.14, Glucose 166.8 H, Calcium 9.63, Total Bilirubin 0.48, AST 30.3, ALT 29.9, Alkaline Phosphatase 69.8, Total Protein 6.95, Albumin 3.91, Globulin 3.04, Albumin/Globulin Ratio 1.28 03/14/21 04:37: WBC 5.05, RBC 4.34, Hgb 11.9 L, Hct 38.0, MCV 87.6, MCH 27.4, MCHC 31.3 L, RDW Coeff of Arnoldo 14.4, Plt Count 134 L, Immature Gran % (Auto) 0.2, Neut % (Auto) 75.1, Lymph % (Auto) 18.4, [place] % (Auto) 6.1, Eos % (Auto) 0.0, Baso % (Auto) 0.2, Neut # (Auto) 3.8, Lymph # (Auto) 0.9, [place] # (Auto) 0.3 L, Eos # (Auto) 0.0, Baso # (Auto) 0.0, Immature Gran # (Auto) 0.0 03/13/21 11:31: Total Creatine Kinase < 20.0 L, Troponin I < 0.012 03/13/21 08:54: Puncture Site Rrad, Base Excess 1.4, O2 Saturation 95.5, ABG pH 7.41, ABG pCO2 41.0, ABG pO2 78.0 L, ABG HCO3 26.0, ABG Total CO2 27.3 H, Dyllan Test +, Hemoglobin 0, Oxyhemoglobin 93.8 L, Carboxyhemoglobin 0.6, Total Hemoglobin 12.3, O2 Delivery Device Nc, Oxygen Liter Flow 2.00, FiO2 % 28.0 03/13/21 03:12: Troponin I < 0.012 ASSESSMENT: Please see below. 1. Atrial fibrillation with increased ventricular response 2. Abnormal Chest x-ray post COVID 3. Chronic lung disease 4. History of ablation 2012 5. Hypertension 6. Dyslipidemia 7. Noncompliance of all aspects of medical care. PLAN: 1. Discharge home 2. Three step, if she qualifies she will have home oxygen 3. Prednisone 20mg daily for 5 days and after 10mg daily for 5 days 4. Doxycycline 100mg BID for 5 days 5. Continue rest of medication as before 6. Bumex 1mg daily AM 7. K-Tab 10meq PO daily AM 8. Discontinue previous Bumex order of 2mg PRN 9. Instructions to come back in 7-10 days. Plan and coordination of the patient's care discussed in the presence of Tester Sound and nurse. SCRIBED BY: BLADIMIR HINOJOSA Deflector Operator scribed while in presence of service performed by Dr. AMBER AGUILLON on 03/14/21 ([id number])
--- NOTE | 2021-03-14 10:35 | DS ---
DATE OF SERVICE: 03/14/21 FINAL DIAGNOSIS ATRIAL FIBRILLATION WITH INCREASED VENTRICULAR RESPONSE ABNORMAL CHEST X-RAY, POST COVID 19 CHRONIC LUNG DISEASE HISTORY ABLATION 2012 AND ON ELIQUIS DYSLIPIDEMIA HYPERTENSION MORBID OBESITY BMI 40 NON-COMPLIANCE WITH ALL ASPECTS OF MEDICAL CARE HISTORY: A-FIB DM DEPRESSION RAYSA DJD METABOLIC SYNDROME OSTEOARTHRITIS ANEMIA SURGICAL HISTORY: GASTRIC BYPASS 6 YEARS AGO VENTRAL HERNIA REPAIR LAST VITALS: Temp Pulse Resp BP Pulse Ox 96.6 F L 97 H 20 117/59 L 94 L 03/14/21 05:33 03/14/21 05:33 03/14/21 05:33 03/14/21 05:33 03/14/21 05:33 DISCHARGE INSTRUCTIONS: DISCHARGE : HOME TODAY DOES NOT WANT HOME HEALTH. MD FOLLOW UP: SEE DR. AGUILLON/ JENNIFER WEISS APRN/BIANCA SMITH APRN IN THE OFFICE ON 03/22/2021 @ 1:30 PM. CALL [phone] IF CONCERNS OR UNABLE TO KEEP APPOINTMENT. CODE STATUS: FULL CODE. TAKE THESE MEDICATIONS AT HOME: Hydrocodone Bitart/Acetaminophen (Hydrocodone Bit/Acetaminophen 5/325 Mg Tablet) 1 tab PO BID [facility] Last Admin: 03/14/21 08:53 Dose: 1 tab Alprazolam (Alprazolam 0.25 Mg Tablet) 0.25 mg PO BID PRN PRN Reason: anxiety Last Admin: 03/13/21 20:07 Dose: 0.25 mg Apixaban (Apixaban 5 Mg Tab) 5 mg PO BID [facility] Last Admin: 03/14/21 08:53 Dose: 5 mg Bumetanide (Bumetanide 1 Mg Tablet) 1 mg PO DAILY [facility] -- (CHANGED) Diltiazem HCl (Diltiazem Hcl 60 Mg Tablet) 90 mg PO BID [facility] Last Admin: 03/14/21 08:51 Dose: 90 mg Duloxetine HCl (Duloxetine Hcl 30 Mg Capsule.) 60 mg PO DAILY [facility] Last Admin: 03/14/21 08:52 Dose: 60 mg Ferrous Sulfate (Ferrous Sulfate 324 Mg Tablet.) 324 mg PO DAILY [facility] Last Admin: 03/14/21 08:52 Dose: 324 mg Doxycycline Hyclate 100 mg PO BI X 5 MORE DAYS [facility] -- (NEW) Stop: 03/15/21 21:29 Last Admin: 03/14/21 08:51 Dose: 100 MG @ 50 mls/hr Lisinopril (Lisinopril 10 Mg Tablet) 10 mg PO DAILY [facility] Last Admin: 03/14/21 08:52 Dose: 10 mg Metformin HCl (Metformin Hcl 500 Mg Tablet) 1,000 mg PO BIDWM [facility] Last Admin: 03/14/21 08:52 Dose: 1,000 mg Multivitamins (Multivitamin 1 Tab) 1 tab PO DAILY [facility] Last Admin: 03/14/21 08:52 Dose: 1 tab Potassium Chloride (Potassium Chloride 10 Meq Tab) 10 meq PO DAILY [facility] -- (CHANGED) Last Admin: 03/14/21 08:52 Dose: 40 meq BETAPACE (Sotalol Hcl 80 Mg Tablet) 40 mg PO BID [facility] -- (NEW) Last Admin: 03/14/21 08:52 Dose: 40 mg PREDNISONE 20 MG WITH FOOD PO DAILY X 5 DAYS AND 10 MG PO DAILY X 5 DAYS AND STOP -- (NEW) PRO-AIR WITH SPACER 2 PUFFS QID -- (NEW) ALLERGIES: ibuprofen [From Motrin] Adverse Reaction (Severe, Verified 09/08/19 10:23) swelling DISCONTINUED MEDICATIONS: 1). STOP BUMEX 2 MG DAILY NEEDED 2). STOP POTASSIUM 40 MEQ DAILY NEW PRESCRIPTIONS: BETAPACE AT 40 MG PO BID BUMEX TO 1 MG PO DAILY POTASSIUM 10 MEQ PO DAILY DOXYCYCLINE 100 MG PO BID X 5 DAYS PREDNISONE 20 MG WITH FOOD PO DAILY X 5 DAYS AND 10 MG PO DAILY X 5 DAYS AND STOP PRO-AIR HFA WITH SPACER 2 PUFFS QID SMOKING: N/A DISEASE SPECIFIC EDUCATION: COVID 19 A-FIB BLEEDING PRECAUTIONS HEART HEALTHY PANDEMIC PRECAUTIONS LAB REVIEW: 03/14/21 04:37 03/14/21 04:37 03/14/21 04:37: Sodium 136.9, Potassium 4.78, Chloride 104.5, Carbon Dioxide 26.0, Anion Gap 11.18, BUN 20.8 H, Creatinine 0.56 L, Estimated GFR (MDRD) 109.00, BUN/Creatinine Ratio 37.14, Glucose 166.8 H, Calcium 9.63, Total Bilirubin 0.48, AST 30.3, ALT 29.9, Alkaline Phosphatase 69.8, Total Protein 6.95, Albumin 3.91, Globulin 3.04, Albumin/Globulin Ratio 1.28 03/14/21 04:37: WBC 5.05, RBC 4.34, Hgb 11.9 L, Hct 38.0, MCV 87.6, MCH 27.4, MCHC 31.3 L, RDW Coeff of Arnoldo 14.4, Plt Count 134 L, Immature Gran % (Auto) 0.2, Neut % (Auto) 75.1, Lymph % (Auto) 18.4, [place] % (Auto) 6.1, Eos % (Auto) 0.0, Baso % (Auto) 0.2, Neut # (Auto) 3.8, Lymph # (Auto) 0.9, [place] # (Auto) 0.3 L, Eos # (Auto) 0.0, Baso # (Auto) 0.0, Immature Gran # (Auto) 0.0 03/13/21 11:31: Total Creatine Kinase < 20.0 L, Troponin I < 0.012 03/13/21 03:12: Troponin I < 0.012 DIET: HEART HEALTHY ACTIVITY: UP TOLERATED WITH FREQUENT REST PERIODS, NO STRENOUS ACTIVITY STAY INDOORS UNTIL SEE DR. AGUILLON AND WHEN HE RELEASES NO LONG TRIPS IN THE CAR UNTIL RELEASED SIGNS AND SYMPTOMS OF GASTROINTESTINAL BLEEDING AND INTRACRANIAL ( BRAIN/HEAD) HEMORRAGE TO WATCH FOR AND PREVENT NO NSAIDS ( MOTRIN, IBUPROFEN, ALEVE, ADVIL, ASPIRIN AND THE LIKE) WHILE TAKING ELIQUIS PANDEMIC PRECAUTIONS HOSPITAL COURSE: 65 year old white female hospitalized with atrial fibrillation with rapid ventricular response with rate of 190 per minute. The patient was started on Cardizem drip. 40mg IV Cardizem was given in divided doses and then Cardizem drip used. Lanoxin drip was used. The patient was put on Betapace 40mg twice a day which seemed to ahve help heart rate to slow. The patient has echo being done report is pending. The patient is non-compliant of medications. The patient the week prior to hospitalization at office visit with chest x-ray which she did not keep. She came to the office and was advised to ER and she did not show. The patient is DNR. She is status post COVID almost 20 days. She is COVID negative now. She will be followed in 7-10 days as an outpatient. Note that the patient has been on Eliquis all along and taking is regularly. She was continued on Eliquis throughout the hospital stay and will be taking it after. Side effects of Eliquis such as GI bleed ad intracranial bleed have been discussed and advised not to take any nonsteroidal antiinflammatory medications. CONDITION: STABLE TIME SPENT: More than 60 minutes. MTDD
[2021-03-14 10:37] VITALS: BP 121/73; TEMP 97.6
--- NOTE | 2021-03-14 11:45 | CM.DICTOOL ---
ADMISSION: MARCH 12, 2021 DISCHARGE: MARCH 14, 2021 DATE OF SERVICE: 03/14/21 FINAL DIAGNOSIS ATRIAL FIBRILLATION WITH INCREASED VENTRICULAR RESPONSE ABNORMAL CHEST X-RAY, POST COVID 19 CHRONIC LUNG DISEASE HISTORY ABLATION 2012 AND ON ELIQUIS DYSLIPIDEMIA HYPERTENSION MORBID OBESITY BMI 40 NON-COMPLIANCE WITH ALL ASPECTS OF MEDICAL CARE HX: A-FIB DM DEPRESSION RAYSA DJD METABOLIC SYNDROME OSTEOARTHRITIS ANEMIA SURGICAL HX: GASTRIC BYPASS 6 YEARS AGO VENTRAL HERNIA REPAIR LAST VITALS Temp Pulse Resp BP Pulse Ox 96.6 F L 97 H 20 117/59 L 94 L 03/14/21 05:33 03/14/21 05:33 03/14/21 05:33 03/14/21 05:33 03/14/21 05:33 TAKE THESE MEDICATIONS AT HOME Hydrocodone Bitart/Acetaminophen (Hydrocodone Bit/Acetaminophen 5/325 Mg Tablet) 1 tab PO BID [facility] Last Admin: 03/14/21 08:53 Dose: 1 tab Alprazolam (Alprazolam 0.25 Mg Tablet) 0.25 mg PO BID PRN PRN Reason: anxiety Last Admin: 03/13/21 20:07 Dose: 0.25 mg Apixaban (Apixaban 5 Mg Tab) 5 mg PO BID [facility] Last Admin: 03/14/21 08:53 Dose: 5 mg Bumetanide (Bumetanide 1 Mg Tablet) 1 mg PO DAILY [facility] -- (CHANGED) Diltiazem HCl (Diltiazem Hcl 60 Mg Tablet) 90 mg PO BID [facility] Last Admin: 03/14/21 08:51 Dose: 90 mg Duloxetine HCl (Duloxetine Hcl 30 Mg Capsule.) 60 mg PO DAILY [facility] Last Admin: 03/14/21 08:52 Dose: 60 mg Ferrous Sulfate (Ferrous Sulfate 324 Mg Tablet.) 324 mg PO DAILY [facility] Last Admin: 03/14/21 08:52 Dose: 324 mg Doxycycline Hyclate 100 mg PO BI X 5 MORE DAYS [facility] -- (NEW) Stop: 03/15/21 21:29 Last Admin: 03/14/21 08:51 Dose: 100 MG @ 50 mls/hr Lisinopril (Lisinopril 10 Mg Tablet) 10 mg PO DAILY [facility] Last Admin: 03/14/21 08:52 Dose: 10 mg Metformin HCl (Metformin Hcl 500 Mg Tablet) 1,000 mg PO BIDWM [facility] Last Admin: 03/14/21 08:52 Dose: 1,000 mg Multivitamins (Multivitamin 1 Tab) 1 tab PO DAILY [facility] Last Admin: 03/14/21 08:52 Dose: 1 tab Potassium Chloride (Potassium Chloride 10 Meq Tab) 10 meq PO DAILY [facility] -- (CHANGED) Last Admin: 03/14/21 08:52 Dose: 40 meq BETAPACE (Sotalol Hcl 80 Mg Tablet) 40 mg PO BID [facility] -- (NEW) Last Admin: 03/14/21 08:52 Dose: 40 mg PREDNISONE 20 MG WITH FOOD PO DAILY X 5 DAYS AND 10 MG PO DAILY X 5 DAYS AND STOP -- (NEW) PRO-AIR WITH SPACER 2 PUFFS QID -- (NEW) ALLERGIES ibuprofen [From Motrin] Adverse Reaction (Severe, Verified 09/08/19 10:23) swelling DISCONTINUED MEDICATIONS 1). STOP BUMEX 2 MG DAILY NEEDED 2). STOP POTASSIUM 40 MEQ DAILY NEW PRESCRIPTIONS: BETAPACE AT 40 MG PO BID BUMEX TO 1 MG PO DAILY POTASSIUM 10 MEQ PO DAILY DOXYCYCLINE 100 MG PO BID X 5 DAYS PREDNISONE 20 MG WITH FOOD PO DAILY X 5 DAYS AND 10 MG PO DAILY X 5 DAYS AND STOP PRO-AIR HFA WITH SPACER 2 PUFFS QID SMOKING: N/A DISEASE SPECIFIC EDUCATION: COVID 19 A-FIB BLEEDING PRECAUTIONS HEART HEALTHY PANDEMIC PRECAUTIONS LAB REVIEW: 03/14/21 04:37 03/14/21 04:37 03/14/21 04:37: Sodium 136.9, Potassium 4.78, Chloride 104.5, Carbon Dioxide 26.0, Anion Gap 11.18, BUN 20.8 H, Creatinine 0.56 L, Estimated GFR (MDRD) 109.00, BUN/Creatinine Ratio 37.14, Glucose 166.8 H, Calcium 9.63, Total Bilirubin 0.48, AST 30.3, ALT 29.9, Alkaline Phosphatase 69.8, Total Protein 6.95, Albumin 3.91, Globulin 3.04, Albumin/Globulin Ratio 1.28 03/14/21 04:37: WBC 5.05, RBC 4.34, Hgb 11.9 L, Hct 38.0, MCV 87.6, MCH 27.4, MCHC 31.3 L, RDW Coeff of Arnoldo 14.4, Plt Count 134 L, Immature Gran % (Auto) 0.2, Neut % (Auto) 75.1, Lymph % (Auto) 18.4, [place] % (Auto) 6.1, Eos % (Auto) 0.0, Baso % (Auto) 0.2, Neut # (Auto) 3.8, Lymph # (Auto) 0.9, [place] # (Auto) 0.3 L, Eos # (Auto) 0.0, Baso # (Auto) 0.0, Immature Gran # (Auto) 0.0 03/13/21 11:31: Total Creatine Kinase < 20.0 L, Troponin I < 0.012 03/13/21 03:12: Troponin I < 0.012 PLAN: DISCHARGE : HOME TODAY DOES NOT WANT HOME HEALTH DIET: HEART HEALTHY ACTIVITY: UP TOLERATED WITH FREQUENT REST PERIODS, NO STRENOUS ACTIVITY STAY INDOORS UNTIL SEE DR. AGUILLON AND WHEN HE RELEASES NO LONG TRIPS IN THE CAR UNTIL RELEASED SIGNS AND SYMPTOMS OF GASTROINTESTINAL BLEEDING AND INTRACRANIAL ( BRAIN/HEAD) HEMORRAGE TO WATCH FOR AND PREVENT NO NSAIDS ( MOTRIN, IBUPROFEN, ALEVE, ADVIL, ASPIRIN AND THE L LAMAR) WHILE TAKING ELIQUIS PANDEMIC PRECAUTIONS MD FOLLOW UP: SEE DR. AGUILLON/ JENNIFER WEISS APRN/BIANCA SMITH APRN IN THE OFFICE ON 03/22/2021 @ 1:30 PM CALL [phone] IF CONCERNS OR UNABLE TO KEEP APPOINTMENT CODE STATUS: FULL CODE MRS GALLOWAY HAS REMAINED ALERT AND ORIENTED X 4, UPBEAT AND PLEASANT. HER HEART RATES AND BLOOD PRESSURES HAVE RETURNED TO TO NORMAL. LUNGS ARE CLEAR. SHE DOES NOT REQUIRE OXYGEN , PULSE OX ON ROOM AIR 94% AND GREATER. SHE IS AMBULATORY WITHOUT ASSISTOR DEVICE. NO DIZZINESS OR CHEST PAIN REPORTED WITH ACTIVITY. SKIN IS WARM, DRY AND INTACT. NO UNUSUAL BRUISING OR BLEEDING NOTED OR REPORTED WHILE ON ELIQUIS. CONTINENT OF BOWEL AND BLADDER. LAST BM 03/13/2021 WITHOUT ANY COMPLICATIONS. NUTRITIONAL AND FLUID INTAKE GOOD. HISTORY OF GASTRIC BYPASS SURGERY, LOST WEIGHT INITIALLY THEN GAINED SOME BACK. SHE IS OBESE. INSTRUCTED ON DIETARY MODIFICATIONS TO PROMOTE OPTIMAL BODY WEIGHT AND SHE STATED SHE KNEW WHAT SHE WAS SUPPOSE TO EAT AND NOT TO EAT, JUST DOESNT DO IT. SHE WAS OFFERED A DIETARY CONSULT AN SHE REFUSED. HOME HEALTH WAS OFFERED AND SHE REFUSED SHE IS INDEPENDENT AND HER SON LIVES WITH HER. MD JENNIFER BRIAN APRN ALYCE HANNAN, APRN
--- NOTE | 2021-03-14 13:39 | PN ---
03/12/2021: Level 5 03/13/2021: Intermediate 03/14/2021: D as in discharge MTDD
--- NOTE | 2021-03-14 13:58 | ECHO2D ---
Date of Exam: 03/14/2021 Ordering Physician: DR. AMBER AGUILLON Room #: [id number] Reason for Echo: ATRIAL FIBRILLATION, HYPERTENSION, DIABETES M-Mode Normal Adult Results LV Dimensions Normal Adult Results AoV Opening excursions >1.6 >1.6 LVEDD-base- 3.5-5.8 5.0 Ao root dimensions 2.0-3.7 3.2 LVESD-base- 3.1-4.6 L. Atrium dimensions 1.9-3.8 5.8 Post. Wall thickness 0.8-1.1 1.3 IV septum (thickness) 0.7-1.2 1.3 Post. Wall excursion 0.72-1.3 NORMAL Septal motion 0.8 Systolic motion R. Ventricular cavity 1.5-2.0 3.0 LVEF 60% 61% Paradoxical septal wall motion NORMAL 2-D : ENLARGED LEFT ATRIAL CAVITY--ENLARGED RIGHT VENTRICLE--NORMAL LEFT VENTRICLE CONTRACTILITY--NO EFFUSION, NO THROMBUS M-MODE: MV: CALCIFIC MITRAL VALVE ANNULUS AV: NORMAL TV: NORMAL PV: NORMAL CHAMBER SIZE: ENLARGED LEFT ATRIAL AND RIGHT VENTRICLE CAVITIES WALL MOTION: NORMAL PERICARDIUM: NORMAL INTERPRETATION: 1. LEFT VENTRICLE HYPERTROPHY WITH ENLARGED LEFT ATRIAL CAVITY (5.8 CM) 2. ENLARGED RIGHT VENTRICLE CAVITY 3. NORMAL LEFT VENTRICLE CONTRACTILITY 4. CALCIFIC MITRAL VALVE ANNULUS MTDD
--- NOTE | 2021-03-20 13:48 | HP ---
DATE OF SERVICE: 03/12/2021 REASON FOR HOSPITALIZATION/HISTORY OF PRESENT ILLNESS: 65 year old white female who presents to the emergency room with short of breath, rapid heart rate was positive COVID on 02/20/2021. She refused antibody infusion. She was called out a Z-pack and Prednisone for which she had an appointment in the office. I believe 07/04/16 that she did not come for. 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 Gipson, yearly Dyslipidemia Hypertension Diabetes Mellitus type II, last A1c was 5.3 on 02/12/21 Fatigue Obesity Metabolic syndrome Depression which is controlled with Cymbalta PAST SURGICAL HISTORY: Ventral hernia repair Colonoscopy 08/12 with Tibrawala History of gastric bypass Ablation with Dr. Gipson 01/07 History of appendectomy REVIEW OF SYSTEMS: CONSTITUTIONAL: No night sweats. No fatigue, malaise, lethargy. No fever or chills. HEENT: Eyes: No visual changes. No eye pain. No eye discharge. ENT: No runny nose. No epistaxis. No sinus pain. No sore throat. No odynophagia. No ear pain. No congestion. RESPIRATORY: No cough, no congestion. No hemoptysis. Shortness of breath. CARDIOVASCULAR: No angina symptoms. No CHF symptoms. No atypical chest pain for CAD. Palpitations. No PND. No orthopnea. Tachycardia. GASTROINTESTINAL: No abdominal pain. No nausea or vomiting. No diarrhea or constipation. No hematemesis. No hematochezia. GENITOURINARY: No urgency. No frequency. No dysuria. No hematuria. No obstructive symptoms. No discharge. No pain. No significant abnormal bleeding. MUSCULOSKELETAL: No musculoskeletal pain. No joint swelling. No arthritis. NEUROLOGICAL: No headache. No neck pain. No syncope. No seizures. No dizziness. PSYCHIATRIC: Not anxious. No depression. No suicidal thoughts. No homicidal thoughts. SKIN: No rash. No lesions. No wounds. ENDOCRINE: No unexplained weight loss. No weight gain. HEMATOLOGIC/LYMPHATIC: No anemia. No purpura. No petechiae. No prolonged or excessive bleeding. No palpable lymph nodes. PERSONAL/FAMILY/SOCIAL HISTORY: She is a non-smoker and lives at home. No alcohol or illicit drug use. She is . MEDICATIONS: Klor-Con M20 40meq PO schulz Metformin 1000mg PO BID Bumetanide 2mg PO daily Multivitamin 1 tablet PO daily Lortab 5-325mg PO BID Ferrous sulfate 324mg PO daily Alprazolam 0.25mg PO BID PRN Lisinopril 40mg PO Q day Duloxetine 60mg PO Q day Eliquis 5mg PO BID Diltiazem 90mg PO Q 12 hours ALLERGIES: Ibuprofen PHYSICAL EXAMINATION: VITAL SIGNS: Temperature 97, heart rate 198, respiratory rate 26, blood pressure 152/98, pulse ox 98%. HEENT: Head normocephalic, atraumatic. Eyes: Extraocular muscles are intact. Pupils are equal, round and reactive to light and accommodation. Ears: No lesions. Nose appeared normal. Throat: No exudate or erythema. NECK: Supple. No JVD, no carotid bruit. No lymphadenopathy or thyromegaly. LUNGS: Clear to auscultation. Percussion note normal. Chest symmetrical. HEART: Tachycardia, irregular heart rate. S1, S2, no S3. No murmur. No cyanosis or clubbing. No ascites. Pulses: Dorsalis pedis and posterior tibial pulses +1 to +2 bilaterally. ABDOMEN: Soft. Nontender. Bowel sounds active. No CVA tenderness. No mass felt. EXTREMITIES: No edema. Full range of motion of all extremities, equal. NEUROLOGIC: No focal deficit. Cranial nerves II through XII are grossly intact. No headache, no double vision or headache. SKIN: Not dry. Intact. Turgor - normal. LYMPHATIC: No palpable lymph nodes/no lymphedema. MUSCULOSKELETAL: Normal joints with no swelling. Muscle tone is normal. LABS: WBC 7.18, hgb 12.8, hct 40.8, plt count 184, sodium 138, potassium 3.7, BUN 14.7, creatinine 0.84, glucose 92, ABG on room air O2 saturation 95, pH 7.47, pCO2 34, pO2 73, bicarb 24.7, Troponin less than 0.012. COVID PCR negative. Chest x-ray shows bilateral multifocal pneumonia. CT of the chest shows multifocal pneumonia, trace pleural effusions, mild intralobular septal thickening suggesting possible interstitial edema, Cholelithiasis. U/A normal. EKG shows Afib with rapid ventricular rate. ASSESSMENT: 1. Atrial fibrillation with RVR 2. Recent COVID 19 infection, approximately 19 days ago 3. Bilateral COVID pneumonia versus fibrosis, no respiratory symptoms. 4. Shortness of breath. PLAN: 1. We will admit 2. Routine telemetry orders 3. The patient is a DNR 4. The patient is to continue home medications 5. Received total of 65mg of Cardizem IV in the ER and Betapace 40mg PO. She also received 20mg IV Lasix. 6. Will monitor output 7. Started on Rocephin IV 8. Zithromax IV for the COVID pneumonia. Again respiratory status is stable 9. Oxygen 1-2 liters as needed 10. Monitor output. 11. Regular diet 12. Will follow very closely. TIME SPENT: More than 70 minutes. BETTYD
== END 2021-03-14 13:55 | disposition home or self-care (01) | DRG 194 ==
LOC: ED 16:16 → MEDSURG A 21:25
PROVIDERS: ADMIT Internal Medicine; ATTEND Internal Medicine
DX: R00.0 Tachycardia, unspecified; E66.01 Morbid (severe) obesity due to excess calories; I48.91 Unspecified atrial fibrillation; J44.1 Chronic obstructive pulmonary disease with (acute) exacerbation; E78.5 Hyperlipidemia, unspecified; Z91.19 Patient's noncompliance with other medical treatment and regimen; J18.9 Pneumonia, unspecified organism; Z79.01 Long term (current) use of anticoagulants; Z86.16 Personal history of COVID-19; R91.8 Other nonspecific abnormal finding of lung field; I10 Essential (primary) hypertension

== ENCOUNTER 2021-04-15 22:00 | Inpatient (IN) ==
[2021-04-15 22:44] LABS: BASOPHILS # (AUTO) 0.1 K/uL (0-0.2); BASOPHILS % (AUTO) 0.7 % (0.0-3.0); EOSINOPHILS # (AUTO) 0.6 K/ul (0.0-0.7); EOSINOPHILS % (AUTO) 6.4 % (0.0-7.0); HEMATOCRIT 38.7 % (37.0-47.0); HEMOGLOBIN 12.6 g/dl (12.0-16.0); IMMATURE GRANULOCYTE % (AUTO) 0.4 % (0.0-5.0); LYMPHOCYTES # (AUTO) 2.4 K/uL (0.60-3.4); LYMPHOCYTES % (AUTO) 28.5 (10.0-50.0); MEAN CORPUSCULAR HEMOGLOBIN 27.9 pg (27.0-31.0); MEAN CORPUSCULAR HGB CONC 32.6 (31.8-35.4); MEAN CORPUSCULAR VOLUME 85.8 fl (81.0-99.0); MONOCYTES # (AUTO) 0.7 K/uL (0.4-2.0); MONOCYTES % (AUTO) 7.8 (0-10); NEUTROPHILS # (AUTO) 4.8 K/ul (2.0-6.9); NEUTROPHILS % (AUTO) 56.2 % (42.2-75.2); PLATELET COUNT 199 10^3/uL (140-440); RDW COEFFICIENT OF VARIATION 15.4 % (11.6-14.8); RED BLOOD COUNT 4.51 10^6/ul (4.20-5.40); WHITE BLOOD COUNT 8.55 K/ul (4.6-10.2)
--- NOTE | 2021-04-15 22:47 | DI ---
EXAM: AP single view of the chest. HISTORY: Shortness of breath. FINDINGS: The bones are unremarkable. The cardiac silhouette is enlarged. The lungs are hypoexpande d. There is a small right pleural effusion. There are bibasilar infiltrates and consolidation, cons istent with pneumonia. Impression: Bibasilar pneumonia as described. Small right pleural effusion. Cardiomegaly.
[2021-04-15 22:53] LABS: ABG O2 HGB 94.4 % (95-100); ABG PH 7.45 (7.35-7.45); BEecf 2.4 (-2.0-3.0); COHb 2.7 (0.5-1.5); HCO3 26.4 (21-28); MetHb 0 (0-1.5); TCO2 27.6 (19-24); sO2 96.4 % (94-98); tHb 12.5 g/dl (11.7-17.4)
[2021-04-15 22:56] LABS: ALANINE AMINOTRANSFERASE 21.9 U/L (0-35); ALBUMIN 4.56 g/dL (3.5-5.0); ALKALINE PHOSPHATASE 61.3 U/L (53-141); ASPARTATE AMINO TRANSFERASE 26.3 U/L (14-36); BILIRUBIN,TOTAL 0.52 mg/dL (0.2-1.3); BLOOD UREA NITROGEN 18.7 mg/dL (7-17); CALCIUM 9.73 mg/dL (8.4-10.2); CARBON DIOXIDE 26.9 mmol/L (22-30.0); CHLORIDE 106.7 mmol/L (98-107); CREATININE 0.79 mg/dL (0.60-1.30); POTASSIUM 4.22 mmol/L (3.5-5.1); SODIUM 140.8 mmol/L (134.5-145); TOTAL PROTEIN 7.23 g/dL (6.3-8.2)
[2021-04-15 22:59] LABS: CREATINE KINASE < 20.0 U/L (30-135)
[2021-04-15 23:08] LABS: TROPONIN I < 0.012 ng/ml (0.0000-0.120)
--- NOTE | 2021-04-15 23:25 | ED.PDOC ---
General ED Provider: Dr. MÓNICA BARRAGAN Chief Complaint: Shortness of Air Stated Complaint: i am sob Time Seen by Provider: 04/15/21 22:46 Mode of Arrival: Walk-In Information Source: Patient Exam Limitations: No limitations Primary Care Provider: AMBER MUKHERJEE Nursing and Triage Documentation Reviewed and Agree: Yes Does patient meet sepsis criteria?: No System Inflammatory Response Syndrome: Not Applicable Sepsis Protocol: For patient's 13 years and over: Temp is 96.8 and below OR 101 and greater Pulse >90 BPM Resp >20/minute Acutely Altered Mental Status Are patient's symptoms suggestive of a new infection, such as: -Pneumonia -Skin, Soft Tissue -Endocarditis -UTI -Bone, Joint Infection -Implantable Device -Acute Abdominal Infection -Wound Infection -Meningitis -Blood Stream Catheter Infection -Unknown Respiratory Complaint Exam Shortness of Air Complaint/Exam Onset/Duration: several days worse today Symptoms Are: Still present Initial Severity: Mild Current Severity: Mild Character: Reports Dyspnea at rest Aggravating: Reports None Alleviating: Reports None Home Oxygen Use: No Recent Stress Test: No Recent Echo/LV Function: No Respiratory Distress: None Stridor Present: No Tracheal Deviation: No Subcutaneous Emphysema: No Accessory Muscle Use: No Retractions: Not Present Diminished Breath Sounds: No Prolonged Expiratory Phase: No Unable to Speak Full Sentences: No Fatigue: No Leg Swelling: No Grunting Respirations: No Kussmaul Respirations: No Differential Diagnoses: Pulmonary Edema Review of Systems Review Of Systems Constitutional: Reports No symptoms Eyes: Reports No symptoms Ears, Nose, Mouth, Throat: Reports No symptoms Respiratory: Reports Short of air Cardiac: Reports No symptoms GI: Reports No symptoms : Reports No symptoms Musculoskeletal: Reports No symptoms Skin: Reports No symptoms Neurological: Reports No symptoms Endocrine: Reports No symptoms Hematologic/Lymphatic: Reports No symptoms All Other Systems: Reviewed and Negative [facility] Medical History Depression DJD (degenerative joint disease) DM type 2 (diabetes mellitus, type 2) Dysfunction of both eustachian tubes Dyslipidemia (high LDL; low HDL) Fatigue RAYSA (generalized anxiety disorder) HTN (hypertension) Neuropathy Positional vertigo Vaginal bleeding Vertigo Family History Mother Cancer BROTHER Cancer of brain Social History Alcohol intake: unknown Substance use type: does not use Lives independently: Yes Daycare: no daycare Current gender identity: female Seatbelt use: always Water heater temperature set < 120 degrees: Yes Working smoke detector in home: Yes Fire extinguisher in home: Yes Carbon monoxide detector in home: Yes Surgical History (Updated 03/13/21 @ 08:08 by BLADIMIR HINOJOSA) H/O gastric bypass H/O ventral hernia repair Female Reproductive History Menstrual Hx Hysterectomy: No Hx Tubal Ligation: No Physical Exam Physical Exam Appearance: Reports Well-appearing Ill-appearing: Not Applicable Pain Distress: Not Applicable Eyes: Reports MICKY, EOMI and Conjunctiva clear ENT: Reports Ears normal, Nose normal and Oropharynx normal Neck: Supple Respiratory: Reports Airway patent, Breath sounds clear and Breath sounds equal Cardiovascular: Reports RRR, Pulses normal, No rub and No murmur GI/: Reports Soft, Nontender, No masses, Bowel sounds normal and No Organomegaly Musculoskeletal: Reports Normal strength, ROM intact, No edema and No calf tende rness Skin: Reports Warm, Dry and Normal color Neurological: Reports Sensation intact, Motor intact, Reflexes intact, Cranial nerves intact, Alert and Oriented Psychiatric: Reports Affect appropriate, Mood appropriate and Anxious Interpretation Radiology Interpretation Radiology Interpretation By: Radiologist Radiology Results: Positive Exam Interpreted: CXR EKG Interpretation Time of EKG #1: 23:24 Rate: Normal Rhythm: Other Ectopy: None [place]: [place] ST Segment: Normal Interpretation: afib Physician Notification Case Discussed Physician Notified: dr [email or web address] Time of Notification: 23:53 Critical Care Note Critical Care Note Total Critical Care Time (mins): 0 Course Course Hematology/Chemistry: 04/15/21 22:24 04/15/21 22:45 Orders, Labs, Meds: Lab Review 04/15/21 04/15/21 04/15/21 22:24 22:45 22:45 WBC 8.55 RBC 4.51 Hgb 12.6 Hct 38.7 MCV 85.8 MCH 27.9 MCHC 32.6 RDW Coeff of Arnoldo 15.4 H Plt Count 199 Immature Gran % (Auto) 0.4 Neut % (Auto) 56.2 Lymph % (Auto) 28.5 [place] % (Auto) 7.8 Eos % (Auto) 6.4 Baso % (Auto) 0.7 Neut # (Auto) 4.8 Lymph # (Auto) 2.4 [place] # (Auto) 0.7 Eos # (Auto) 0.6 Baso # (Auto) 0.1 Immature Gran # (Auto) 0.0 Puncture Site Base Excess O2 Saturation ABG pH ABG pCO2 ABG pO2 ABG HCO3 ABG Total CO2 [place] Test Hemoglobin Oxyhemoglobin Carboxyhemoglobin Total Hemoglobin FiO2 % Sodium 140.8 Potassium 4.22 Chloride 106.7 Carbon Dioxide 26.9 Anion Gap 11.42 BUN 18.7 H Creatinine 0.79 Estimated GFR (MDRD) 73.00 BUN/Creatinine Ratio 23.67 Glucose 143.0 H Calcium 9.73 Total Bilirubin 0.52 AST 26.3 ALT 21.9 Alkaline Phosphatase 61.3 Total Creatine Kinase < 20.0 L Troponin I < 0.012 NT-Pro-B Natriuret Pep Total Protein 7.23 Albumin 4.56 Globulin 2.67 Albumin/Globulin Ratio 1.70 D-Dimer 531.02 H 04/15/21 04/15/21 22:45 22:48 WBC RBC Hgb Hct MCV MCH MCHC RDW Coeff of Arnoldo Plt Count Immature Gran % (Auto) Neut % (Auto) Lymph % (Auto) [place] % (Auto) Eos % (Auto) Baso % (Auto) Neut # (Auto) Lymph # (Auto) [place] # (Auto) Eos # (Auto) Baso # (Auto) Immature Gran # (Auto) Puncture Site Lb Base Excess 2.4 O2 Saturation 96.4 ABG pH 7.45 ABG pCO2 38.0 ABG pO2 81.0 L ABG HCO3 26.4 ABG Total CO2 27.6 H [place] Test + Hemoglobin 0 Oxyhemoglobin 94.4 L Carboxyhemoglobin 2.7 H Total Hemoglobin 12.5 FiO2 % 21.0 Sodium Potassium Chloride Carbon Dioxide Anion Gap BUN Creatinine Estimated GFR (MDRD) BUN/Creatinine Ratio Glucose Calcium Total Bilirubin AST ALT Alkaline Phosphatase Total Creatine Kinase Troponin I NT-Pro-B Natriuret Pep 985.000 H Total Protein Albumin Globulin Albumin/Globulin Ratio D-Dimer Orders Category Date Time Status ABG DRAW REQUEST Stat CARDIO 04/15/21 22:26 Completed EKG-(ED ONLY) Stat CARDIO 04/15/21 22:24 Completed ED STAFF DEVELOPMENT EDUCATOR APPLIED .ONCE EMERGENCY 04/15/21 22:24 Active ED IV/MEDIPORT/POWERPORT .ONCE EMERGENCY 04/15/21 22:24 Active ARTERIAL BLOOD GAS [ABG COOX] Stat LAB 04/15/21 22:48 Completed CBC W/ AUTO DIFF Stat LAB 04/15/21 22:24 Completed COMPREHENSIVE METABOLIC PANEL Stat LAB 04/15/21 22:45 Completed CREATINE KINASE Stat LAB 04/15/21 22:45 Completed D-DIMER Stat LAB 04/15/21 22:45 Completed MISCELLANEOUS CULTURE Stat LAB 04/15/21 23:05 Ordered PRO-BNP [NT-PROBNP] Stat LAB 04/15/21 22:45 Completed TROPONIN I Stat LAB 04/15/21 22:45 Completed 0.9 % Sodium Chloride [Saline Flush] MEDS 04/15/21 22:24 Active 1 syr IVF PRN PRN CXR [CHEST, 1V AP ONLY] Stat RADS 04/15/21 22:24 Completed Medications Generic Name Dose Route Start Last Admin Trade Name Freq PRN Reason Stop Dose Admin Sodium Chloride 1 syr 04/15/21 22:24 0.9% Sodium Chloride 10 Ml Disp.Syrin IVF PRN PRN To flush IV Vital Signs: Temp Pulse Resp BP Pulse Ox 04/15/21 22:01 98.8 F 84 28 H 144/101 H 90 L Discharge Plan Discharge Patient Disposition: ADMITTED INPATIENT Discharge Problem: Post-COVID chronic dyspnea, Volume overload Prescriptions: No Action metformin 1,000 MG tablet 1,000 mg PO BID 0RF multivitamin [Daily Multi-Vitamin] 1 EACH tablet 1 tab PO DAILY 0RF hydrocodone-acetaminophen [Lortab 5-325] 1 EACH tablet 1 ea PO BID 0RF alprazolam 0.25 MG tablet 0.25 mg PO BID 0RF ferrous sulfate 324 MG tablet,delayed release (DR/EC) 324 mg PO DAILY 0RF tramadol 50 mg tablet 50 mg PO DAILY 0RF diltiazem HCl 30 MG tablet 90 mg PO Q12HR 0RF sotalol [Betapace] 80 mg Tablet 40 mg PO BID Qty: 60 0RF bumetanide 1 mg Tablet 1 mg PO DAILY Qty: 30 0RF potassium chloride [K-Tab] 10 mEq Tablet Extended Release 10 meq PO DAILY Qty: 30 0RF albuterol sulfate [ProAir HFA] 90 mcg/actuation Hfa Aerosol Inhaler 2 puff INHALATION QID Qty: 18 0RF Rx Instructions: FOR DIAGNOSIS: S/P COVID 19 - U07.1, HYPOXIA - R09.02 AND COPD - J44.9 . WITH SPACER . RINSE MOUTH AFTERWARDS. Eliquis 5 mg tablet 5 mg PO BID 0RF lisinopril 40 mg tablet 40 mg PO QDAY 0RF duloxetine [Cymbalta] 60 mg capsule,delayed release(DR/EC) 60 mg PO QDAY 0RF ED Provider: MÓNICA GIBSON Condition: Fair Physician Progress Note: []
[2021-04-15] MEDS ORDERED: LASIX IVP STA (23:54)
[2021-04-16] MEDS: ZESTRIL PO SCH ×2 (00:15→09:04)
[2021-04-16 00:48] VITALS: BMI 41.3
[2021-04-16] MEDS: CYMBALTA PO SCH ×2 (01:36→09:05)
[2021-04-16] MEDS: VENTOLIN HFA (PER PUFF-WITH SPACER) IH SCH ×4 (04:50→19:40)
[2021-04-16 05:44] LABS: BASOPHILS % (AUTO) 0.6 % (0.0-3.0); EOSINOPHILS # (AUTO) 0.3 K/ul (0.0-0.7); EOSINOPHILS % (AUTO) 6.4 % (0.0-7.0); HEMATOCRIT 36.7 % (37.0-47.0); HEMOGLOBIN 11.6 g/dl (12.0-16.0); IMMATURE GRANULOCYTE % (AUTO) 0.4 % (0.0-5.0); LYMPHOCYTES # (AUTO) 1.6 K/uL (0.60-3.4); LYMPHOCYTES % (AUTO) 34.1 (10.0-50.0); MEAN CORPUSCULAR HEMOGLOBIN 27.6 pg (27.0-31.0); MEAN CORPUSCULAR HGB CONC 31.6 (31.8-35.4); MEAN CORPUSCULAR VOLUME 87.2 fl (81.0-99.0); MONOCYTES # (AUTO) 0.4 K/uL (0.4-2.0); NEUTROPHILS # (AUTO) 2.3 K/ul (2.0-6.9); NEUTROPHILS % (AUTO) 49.5 % (42.2-75.2); PLATELET COUNT 131 10^3/uL (140-440); RDW COEFFICIENT OF VARIATION 15.3 % (11.6-14.8); RED BLOOD COUNT 4.21 10^6/ul (4.20-5.40); WHITE BLOOD COUNT 4.66 K/ul (4.6-10.2)
[2021-04-16 06:02] LABS: ALANINE AMINOTRANSFERASE 19.3 U/L (0-35); ALBUMIN 4.06 g/dL (3.5-5.0); ALKALINE PHOSPHATASE 57.2 U/L (53-141); ASPARTATE AMINO TRANSFERASE 21.4 U/L (14-36); BILIRUBIN,TOTAL 0.61 mg/dL (0.2-1.3); BLOOD UREA NITROGEN 15.9 mg/dL (7-17); CALCIUM 9.28 mg/dL (8.4-10.2); CARBON DIOXIDE 37.9 mmol/L (22-30.0); CHLORIDE 99.9 mmol/L (98-107); CREATININE 0.77 mg/dL (0.60-1.30); GLUCOSE 119.7 mg/dL (74-106); POTASSIUM 3.27 mmol/L (3.5-5.1); SODIUM 141.8 mmol/L (134.5-145); TOTAL PROTEIN 6.54 g/dL (6.3-8.2)
--- NOTE | 2021-04-16 06:58 | PCM ---
Chief Complaint Chief Complaint: i cant breathe and i think i am holding fluid History of Present Illness History of Present Illness: This is a 65 yr old lady with hx of afib on eliquis and dm tpe 2 who presented to the ed with several days of sob. She admitted to the having "swelling" She denies any angina or hemopthysis. In the ed her oximetry was 89_90% and a cxr wiht bibasilar infiltratre with pleural effusion. She is admitted to the hospitalist service per dr mukherjee. Review of Systems Constitutional: Reports Weakness Eyes: Reports No symptoms Ears: Reports No symptoms Nose: Reports No symptoms Throat: Reports No symptoms Mouth: Reports No symptoms Respiratory: Reports Shortness of air Cardiovascular: Reports No symptoms Gastrointestinal: Reports No symptoms Genitourinary: Reports No symptoms Neurological: Reports No symptoms Musculoskeletal: Reports No symptoms Skin: Reports No symptoms Immunology: Reports No symptoms Hematology: Reports No symptoms Endocrine: Reports No symptoms Psychiatric: Reports No symptoms Habits: Denies Tobacco use, Substance use, Alcohol use or Other Allergies Allergies Allergy/AdvReac Type Severity Reaction Status Date / Time ibuprofen [From Motrin] AdvReac Severe swelling Verified 09/08/19 10:23 [facility] Medical History Depression DJD (degenerative joint disease) DM type 2 (diabetes mellitus, type 2) Dysfunction of both eustachian tubes Dyslipidemia (high LDL; low HDL) Fatigue RAYSA (generalized anxiety disorder) HTN (hypertension) Neuropathy Positional vertigo Vaginal bleeding Vertigo Surgical History H/O cardiac radiofrequency ablation H/O gastric bypass H/O ventral hernia repair Family History Mother Cancer BROTHER Cancer of brain Social History Alcohol intake: unknown Substance use type: does not use Lives independently: Yes Daycare: no daycare Current gender identity: female Seatbelt use: always Water heater temperature set < 120 degrees: Yes Working smoke detector in home: Yes Fire extinguisher in home: Yes Carbon monoxide detector in home: Yes Medications Medications: Medications Generic Name Dose Route Start Last Admin Trade Name Freq PRN Reason Stop Dose Admin Hydrocodone Bitart/Acetaminophen 1 tab 04/16/21 09:00 Hydrocodone Bit/Acetaminophen 5/325 Mg Tablet PO BID [facility] Albuterol Sulfate 2 puff 04/16/21 09:00 Albuterol Sulfate (Ventolin Hfa) 18 Gm 1 Puff With Spacer IH QID [facility] Albuterol Sulfate 2 puff 04/16/21 06:00 04/16/21 04:50 Albuterol Sulfate (Ventolin Hfa) 18 Gm 1 Puff With Spacer IH 2 puff RTQID [facility] Administration Alprazolam 0.25 mg 04/16/21 09:00 Alprazolam 0.25 Mg Tablet PO BID [facility] Apixaban 5 mg 04/16/21 09:00 Apixaban 5 Mg Tab PO BID [facility] Bumetanide 1 mg 04/16/21 09:00 Bumetanide 1 Mg/4 Ml Vial IVP DAILY [facility] Diltiazem HCl 90 mg 04/16/21 09:00 Diltiazem Hcl 30 Mg Tablet PO Q12HR [facility] Duloxetine HCl 60 mg 04/15/21 23:45 04/16/21 01:36 Duloxetine Hcl 30 Mg Capsule. PO Not Given DAILY [facility] Ferrous Sulfate 324 mg 04/16/21 09:00 Ferrous Sulfate 324 Mg Tablet. PO DAILY [facility] Insulin Human Regular 0 unit 04/16/21 00:02 Insulin Regular, Human 100 Unit/Ml (3ml) Vial SUBCUT PRN PRN Hyperglycemia Protocol Lisinopril 40 mg 04/15/21 23:45 04/16/21 00:15 Lisinopril 40 Mg Tablet PO 40 mg DAILY [facility] Administration Potassium Chloride 10 meq 04/16/21 09:00 Potassium Chloride 10 Meq Capsule.Er PO DAILY [facility] Sodium Chloride 1 syr 04/15/21 22:24 0.9% Sodium Chloride 10 Ml Disp.Syrin IVF PRN PRN To flush IV Sotalol HCl 40 mg 04/16/21 09:00 Sotalol Hcl 80 Mg Tablet PO BID [facility] Tramadol HCl 50 mg 04/16/21 09:00 Tramadol Hcl 50 Mg Tablet PO DAILY [facility] Body Composition Height: 5 ft 7 in Weight: 264 lb Body Mass Index (BMI): 41.3 Vital Signs Temperature: 96.9 F Pulse Rate: 93 Respiratory Rate: 16 Blood Pressure: 130/86 O2 Sat by Pulse Oximetry: 97 Physical Examination Appearance: Reports Obese Ill-appearing: Not Applicable Pain Distress: Not Applicable Eyes: Reports MICKY, EOMI and Conjunctiva clear ENT: Reports Ears normal, Nose normal and Oropharynx normal Neck: Supple Respiratory: Reports Airway patent, Breath sounds equal, Breath sounds diminished, Crackles and Rhonchi Cardiovascular: Reports RRR, Pulses normal and No rub GI/: Reports Soft, Nontender, No masses, Bowel sounds normal and No Organomegaly Musculoskeletal: Reports Normal strength, ROM intact, No edema and No calf tenderness Skin: Reports Warm, Dry and Normal color Neurological: Reports Sensation intact, Motor intact, Reflexes intact, Cranial nerves intact, Alert and Oriented Psychiatric: Reports Affect appropriate, Mood appropriate and Anxious Lab/Tests/Diagnostic Imaging Lab/Tests/Diagnostic Imaging: Lab Review 04/15/21 04/15/21 04/15/21 22:24 22:45 22:45 WBC 8.55 RBC 4.51 Hgb 12.6 Hct 38.7 MCV 85.8 MCH 27.9 MCHC 32.6 RDW Coeff of Arnoldo 15.4 H Plt Count 199 Immature Gran % (Auto) 0.4 Neut % (Auto) 56.2 Lymph % (Auto) 28.5 [place] % (Auto) 7.8 Eos % (Auto) 6.4 Baso % (Auto) 0.7 Neut # (Auto) 4.8 Lymph # (Auto) 2.4 [place] # (Auto) 0.7 Eos # (Auto) 0.6 Baso # (Auto) 0.1 Immature Gran # (Auto) 0.0 Puncture Site Base Excess O2 Saturation ABG pH ABG pCO2 ABG pO2 ABG HCO3 ABG Total CO2 Dyllan Test Hemoglobin Oxyhemoglobin Carboxyhemoglobin Total Hemoglobin FiO2 % Sodium 140.8 Potassium 4.22 Chloride 106.7 Carbon Dioxide 26.9 Anion Gap 11.42 BUN 18.7 H Creatinine 0.79 Estimated GFR (MDRD) 73.00 BUN/Creatinine Ratio 23.67 Glucose 143.0 H Calcium 9.73 Total Bilirubin 0.52 AST 26.3 ALT 21.9 Alkaline Phosphatase 61.3 Total Creatine Kinase < 20.0 L Troponin I < 0.012 NT-Pro-B Natriuret Pep Total Protein 7.23 Albumin 4.56 Globulin 2.67 Albumin/Globulin Ratio 1.70 D-Dimer 531.02 H SARS CoV-2 RNA Rapid MARY 04/15/21 04/15/21 04/16/21 22:45 22:48 04:58 WBC 4.66 RBC 4.21 Hgb 11.6 L Hct 36.7 L MCV 87.2 MCH 27.6 MCHC 31.6 L RDW Coeff of Arnoldo 15.3 H Plt Count 131 L D Immature Gran % (Auto) 0.4 Neut % (Auto) 49.5 Lymph % (Auto) 34.1 [place] % (Auto) 9.0 Eos % (Auto) 6.4 Baso % (Auto) 0.6 Neut # (Auto) 2.3 Lymph # (Auto) 1.6 [place] # (Auto) 0.4 Eos # (Auto) 0.3 Baso # (Auto) 0.0 Immature Gran # (Auto) 0.0 Puncture Site Lb Base Excess 2.4 O2 Saturation 96.4 ABG pH 7.45 ABG pCO2 38.0 ABG pO2 81.0 L ABG HCO3 26.4 ABG Total CO2 27.6 H Dyllan Test + Hemoglobin 0 Oxyhemoglobin 94.4 L Carboxyhemoglobin 2.7 H Total Hemoglobin 12.5 FiO2 % 21.0 Sodium Potassium Chloride Carbon Dioxide Anion Gap BUN Creatinine Estimated GFR (MDRD) BUN/Creatinine Ratio Glucose Calcium Total Bilirubin AST ALT Alkaline Phosphatase Total Creatine Kinase Troponin I NT-Pro-B Natriuret Pep 985.000 H Total Protein Albumin Globulin Albumin/Globulin Ratio D-Dimer SARS CoV-2 RNA Rapid MARY 04/16/21 04/16/21 04:58 23:00 WBC RBC Hgb Hct MCV MCH MCHC RDW Coeff of Arnoldo Plt Count Immature Gran % (Auto) Neut % (Auto) Lymph % (Auto) [place] % (Auto) Eos % (Auto) Baso % (Auto) Neut # (Auto) Lymph # (Auto) [place] # (Auto) Eos # (Auto) Baso # (Auto) Immature Gran # (Auto) Puncture Site Base Excess O2 Saturation ABG pH ABG pCO2 ABG pO2 ABG HCO3 ABG Total CO2 Dyllan Test Hemoglobin Oxyhemoglobin Carboxyhemoglobin Total Hemoglobin FiO2 % Sodium 141.8 Potassium 3.27 L Chloride 99.9 Carbon Dioxide 37.9 H D Anion Gap 7.27 BUN 15.9 Creatinine 0.77 Estimated GFR (MDRD) 75.00 BUN/Creatinine Ratio 20.64 Glucose 119.7 H Calcium 9.28 Total Bilirubin 0.61 AST 21.4 ALT 19.3 Alkaline Phosphatase 57.2 Total Creatine Kinase Troponin I NT-Pro-B Natriuret Pep Total Protein 6.54 Albumin 4.06 Globulin 2.48 Albumin/Globulin Ratio 1.63 D-Dimer SARS CoV-2 RNA Rapid MARY Negative Orders Category Date Time Status [facility] ADMISSION 04/15/21 23:55 Active ABG DRAW REQUEST Stat CARDIO 04/15/21 22:26 Completed EKG-(ED ONLY) Stat CARDIO 04/15/21 22:24 Completed EKG-(IP & OP ONLY) DAILY [facility] 04/16/21 06:00 Completed EKG-(IP & OP ONLY) DAILY [facility] 04/17/21 06:00 Ordered METERED DOSE INHALATION Routine CARDIO 04/16/21 00:37 Active OXYGEN Routine CARDIO 04/15/21 23:57 Active ACTIVITY .BR with BRP CARE 04/15/21 23:56 Active BLOOD GLUCOSE MONITORING (MED/SURG) 0630,1100,1700,2100 CARE 04/16/21 00:02 Active Consult Pharmacist [PHARMACIST CONSULT] ONCE CARE 04/16/21 00:18 Active GIVE HS SNACK 2100 CARE 04/15/21 23:58 Active INTAKE & OUTPUT Q8HR CARE 04/15/21 23:56 Active IP: INSERT SALINE LOCK ONCE CARE 04/15/21 23:56 Active NOTIFY PHYSICIAN OF CONSULT ONCE CARE 04/16/21 00:07 Active TELEMETRY MONITORING TELE CARE 04/15/21 23:55 Active VITAL SIGNS Q8HR CARE 04/15/21 23:56 Active CONSULT PHYSICIAN [PHYSICIAN CONSULTATION] [CONS] CONSULTS 04/16/21 00:06 Ordered Routine ADA 2000 NAWAF DIET DIETARY 04/16/21 Breakfast Ordered CARDIAC DIET DIETARY 04/15/21 Breakfast Ordered HS SNACK DIETARY 04/15/21 Dinner Ordered ED DRAPERY OPERATOR APPLIED .ONCE EMERGENCY 04/15/21 22:24 Active ED IV/MEDIPORT/POWERPORT .ONCE EMERGENCY 04/15/21 22:24 Active ARTERIAL BLOOD GAS [ABG COOX] Stat LAB 04/15/21 22:48 Completed CBC W/ AUTO DIFF DAILY@0600 LAB 04/16/21 04:58 Completed CBC W/ AUTO DIFF DAILY@0600 LAB 04/17/21 06:00 Ordered CBC W/ AUTO DIFF Stat LAB 04/15/21 22:24 Completed COMPREHENSIVE METABOLIC PANEL DAILY@0600 LAB 04/16/21 04:58 Completed COMPREHENSIVE METABOLIC PANEL DAILY@0600 LAB 04/17/21 06:00 Ordered COMPREHENSIVE METABOLIC PANEL Stat LAB 04/15/21 22:45 Completed CREATINE KINASE Stat LAB 04/15/21 22:45 Completed D-DIMER Stat LAB 04/15/21 22:45 Completed PRO-BNP [NT-PROBNP] Stat LAB 04/15/21 22:45 Completed TROPONIN I Stat LAB 04/15/21 22:45 Completed 0.9 % Sodium Chloride [Saline Flush] MEDS 04/15/21 22:24 Active 1 syr IVF PRN PRN Albuterol Inhaler(with Spacer) [Ventolin Hfa (Per Puff- MEDS 04/16/21 09:00 Active with Spacer)] 2 puff IH QID Albuterol Inhaler(with Spacer) [Ventolin Hfa (Per Puff- MEDS 04/16/21 06:00 Active with Spacer)] 2 puff IH RTQID Alprazolam [Xanax] MEDS 04/16/21 09:00 Active 0.25 mg PO BID Apixaban [Eliquis] MEDS 04/16/21 09:00 Active 5 mg PO BID Bumetanide [Bumex] [facility] 04/16/21 09:00 Active 1 mg IVP DAILY Diltiazem HCl [Cardizem] [facility] 04/16/21 09:00 Active 90 mg PO Q12HR Duloxetine HCl [Cymbalta] MEDS 04/15/21 23:45 Active 60 mg PO DAILY Ferrous Sulfate [facility] 04/16/21 09:00 Active 324 mg PO DAILY Furosemide [Lasix] MEDS 04/15/21 23:54 Discontinued 40 mg IVP ONCE STA Hydrocodone Bit/Acetaminophen [[place] 5-325] MEDS 04/16/21 09:00 Active 1 tab PO BID Insulin Regular, Human [Humulin R] MEDS 04/16/21 00:02 Active See Protocol SUBCUT PRN PRN Lisinopril [Zestril] MEDS 04/15/21 23:45 Active 40 mg PO DAILY Potassium Chloride [Micro-K Cap] MEDS 04/16/21 09:00 Active 10 meq PO DAILY Sotalol HCl [Betapace] MEDS 04/16/21 09:00 Active 40 mg PO BID Tramadol HCl [Ultram] MEDS 04/16/21 09:00 Active 50 mg PO DAILY RESUSCITATION STATUS Routine OTHERS 04/15/21 23:56 Ordered CXR [CHEST, 1V AP ONLY] Stat RADS 04/15/21 22:24 Completed Medications Generic Name Dose Route Start Last Admin Trade Name Freq PRN Reason Stop Dose Admin Hydrocodone Bitart/Acetaminophen 1 tab 04/16/21 09:00 Hydrocodone Bit/Acetaminophen 5/325 Mg Tablet PO BID [facility] Albuterol Sulfate 2 puff 04/16/21 09:00 Albuterol Sulfate (Ventolin Hfa) 18 Gm 1 Puff With Spacer IH QID [facility] Albuterol Sulfate 2 puff 04/16/21 06:00 04/16/21 04:50 Albuterol Sulfate (Ventolin Hfa) 18 Gm 1 Puff With Spacer IH 2 puff RTQID [facility] Administration Alprazolam 0.25 mg 04/16/21 09:00 Alprazolam 0.25 Mg Tablet PO BID [facility] Apixaban 5 mg 04/16/21 09:00 Apixaban 5 Mg Tab PO BID [facility] Bumetanide 1 mg 04/16/21 09:00 Bumetanide 1 Mg/4 Ml Vial IVP DAILY [facility] Diltiazem HCl 90 mg 04/16/21 09:00 Diltiazem Hcl 30 Mg Tablet PO Q12HR [facility] Duloxetine HCl 60 mg 04/15/21 23:45 04/16/21 01:36 Duloxetine Hcl 30 Mg Capsule. PO Not Given DAILY [facility] Ferrous Sulfate 324 mg 04/16/21 09:00 Ferrous Sulfate 324 Mg Tablet. PO DAILY [facility] Insulin Human Regular 0 unit 04/16/21 00:02 Insulin Regular, Human 100 Unit/Ml (3ml) Vial SUBCUT PRN PRN Hyperglycemia Protocol Lisinopril 40 mg 04/15/21 23:45 04/16/21 00:15 Lisinopril 40 Mg Tablet PO 40 mg DAILY [facility] Administration Potassium Chloride 10 meq 04/16/21 09:00 Potassium Chloride 10 Meq Capsule.Er PO DAILY [facility] Sodium Chloride 1 syr 04/15/21 22:24 0.9% Sodium Chloride 10 Ml Disp.Syrin IVF PRN PRN To flush IV Sotalol HCl 40 mg 04/16/21 09:00 Sotalol Hcl 80 Mg Tablet PO BID [facility] Tramadol HCl 50 mg 04/16/21 09:00 Tramadol Hcl 50 Mg Tablet PO DAILY [facility] Discontinued Medications Generic Name Dose Route Start Last Admin Trade Name Kady PRN Reason Stop Dose Admin Furosemide 40 mg 04/15/21 23:54 04/16/21 00:16 Furosemide Inj 40 Mg/4 Ml Vial IVP 04/15/21 23:55 40 mg ONCE STA Administration Assessment (1) Post-COVID chronic dyspnea: Status: Acute Code(s): R06.09 - Other forms of dyspnea; U09.9 - Post COVID-19 condition, unspecified SNOMED Code(s): 6195493542 (2) Atrial fibrillation: Status: Acute Code(s): I48.91 - Unspecified atrial fibrillation SNOMED Code(s): 88021248 (3) Volume overload: Status: Acute Code(s): E87.70 - Fluid overload, unspecified SNOMED Code(s): 30842157 Assessment: Her cxr shows "bilaleral pneumonia" but she is without fever or cough or leukocytosis. I discussed with dr mukherjee. He felt this was a post covid pneumonia situation and he also indicated her recent echo was unrevealing. Plan Plan: will try gentle diuresis, monitor potassium and ask for walking oximetry tomorrow. Dr mukherjee is consulted.
--- NOTE | 2021-04-16 08:09 | PCM.PROG ---
pt seen today by Dr Hicks will observe for treatment success of chf vss care to Dr Noyola at 19:00
[2021-04-16] MEDS ORDERED: VENTOLIN HFA (PER PUFF-WITH SPACER) IH SCH (09:00)
[2021-04-16] MEDS: BUMEX IVP SCH (09:02)
[2021-04-16] MEDS: MAXIPIME 2 GM/50 ML D5W 2 GM/50 ML BAG IV SCH ×3 (09:03→20:04)
[2021-04-16] MEDS: XANAX PO SCH ×2 (09:03→20:05)
[2021-04-16] MEDS: ZITHROMAX PO SCH (09:03)
[2021-04-16] MEDS: BETAPACE PO SCH ×2 (09:03→20:04)
[2021-04-16] MEDS: MICRO-K CAP PO SCH (09:04)
[2021-04-16] MEDS: ELIQUIS PO SCH ×2 (09:04→20:06)
[2021-04-16] MEDS: NORCO 5-325 PO SCH ×2 (09:05→20:06)
[2021-04-16] MEDS: ULTRAM PO SCH (09:05)
[2021-04-16] MEDS: FERROUS SULFATE PO SCH (09:05)
[2021-04-16] MEDS: CARDIZEM PO SCH ×4 (09:05→20:06)
[2021-04-16] MEDS: K-DUR PO SCH ×3 (09:05→17:27)
[2021-04-16] MEDS: HUMULIN R SUBCUT PRN ×3 (11:50→20:05)
[2021-04-16] MEDS ORDERED: LANOXIN IVP ONE (12:41)
[2021-04-16] MEDS: DECADRON IM SCH (13:07)
[2021-04-16] MEDS ORDERED: LANOXIN IVP STA (17:18)
[2021-04-17] MEDS: VENTOLIN HFA (PER PUFF-WITH SPACER) IH SCH ×4 (04:45→19:30)
[2021-04-17 05:10] LABS: BASOPHILS % (AUTO) 0.2 % (0.0-3.0); EOSINOPHILS % (AUTO) 0.7 % (0.0-7.0); HEMATOCRIT 36.5 % (37.0-47.0); HEMOGLOBIN 11.5 g/dl (12.0-16.0); IMMATURE GRANULOCYTE % (AUTO) 0.5 % (0.0-5.0); LYMPHOCYTES # (AUTO) 0.8 K/uL (0.60-3.4); LYMPHOCYTES % (AUTO) 19.4 (10.0-50.0); MEAN CORPUSCULAR HEMOGLOBIN 27.4 pg (27.0-31.0); MEAN CORPUSCULAR HGB CONC 31.5 (31.8-35.4); MEAN CORPUSCULAR VOLUME 87.1 fl (81.0-99.0); MONOCYTES # (AUTO) 0.3 K/uL (0.4-2.0); MONOCYTES % (AUTO) 7.7 (0-10); NEUTROPHILS % (AUTO) 71.5 % (42.2-75.2); PLATELET COUNT 122 10^3/uL (140-440); RDW COEFFICIENT OF VARIATION 14.8 % (11.6-14.8); RED BLOOD COUNT 4.19 10^6/ul (4.20-5.40); WHITE BLOOD COUNT 4.18 K/ul (4.6-10.2)
[2021-04-17 05:20] LABS: ALANINE AMINOTRANSFERASE 18.9 U/L (0-35); ALBUMIN 4.07 g/dL (3.5-5.0); ALKALINE PHOSPHATASE 55.8 U/L (53-141); BILIRUBIN,TOTAL 0.68 mg/dL (0.2-1.3); BLOOD UREA NITROGEN 14.5 mg/dL (7-17); CALCIUM 9.66 mg/dL (8.4-10.2); CARBON DIOXIDE 37.3 mmol/L (22-30.0); CHLORIDE 99.7 mmol/L (98-107); CREATININE 0.52 mg/dL (0.60-1.30); GLUCOSE 131.3 mg/dL (74-106); POTASSIUM 4.24 mmol/L (3.5-5.1); SODIUM 137.5 mmol/L (134.5-145); TOTAL PROTEIN 6.59 g/dL (6.3-8.2)
[2021-04-17] MEDS: MAXIPIME 2 GM/50 ML D5W 2 GM/50 ML BAG IV SCH (05:34)
[2021-04-17 06:07] LABS: ABG PH 7.37 (7.35-7.45)
[2021-04-17 06:08] LABS: BEecf 14 (-2.0-3.0); COHb 1.9 (0.5-1.5); HCO3 39.3 (21-28); MetHb 0 (0-1.5); TCO2 41.4 (19-24)
[2021-04-17 06:09] LABS: sO2 87.8 % (94-98); tHb 11.7 g/dl (11.7-17.4)
[2021-04-17] MEDS: NORCO 5-325 PO SCH ×2 (08:32→20:31)
[2021-04-17] MEDS: BETAPACE PO SCH ×2 (08:33→20:31)
[2021-04-17] MEDS: CYMBALTA PO SCH (08:33)
[2021-04-17] MEDS: ZESTRIL PO SCH (08:33)
[2021-04-17] MEDS: XANAX PO SCH ×2 (08:33→20:31)
[2021-04-17] MEDS: CARDIZEM PO SCH ×4 (08:33→20:30)
[2021-04-17] MEDS: ZITHROMAX PO SCH (08:33)
[2021-04-17] MEDS: FERROUS SULFATE PO SCH (08:34)
[2021-04-17] MEDS: MICRO-K CAP PO SCH (08:34)
[2021-04-17] MEDS: ULTRAM PO SCH (08:34)
[2021-04-17] MEDS: K-DUR PO SCH ×3 (08:34→20:24)
[2021-04-17] MEDS: DECADRON IM SCH (08:35)
[2021-04-17] MEDS: ELIQUIS PO SCH ×2 (08:36→20:31)
[2021-04-17] MEDS: BUMEX IVP SCH (09:01)
[2021-04-17] MEDS ORDERED: MILK OF MAGNESIA PO PRN (09:35)
[2021-04-17] MEDS: HUMULIN R SUBCUT PRN ×3 (11:10→20:31)
[2021-04-17] MEDS ORDERED: CITRATE OF MAGNESIA PO PRN (12:09)
--- NOTE | 2021-04-17 13:41 | CONS ---
DATE OF CONSULTATION: 04/16/21 REASON FOR CONSULTATION: Evaluation of the patient for atrial fibrillation with rapid ventricular response and shortness of breath HISTORY OF PRESENT ILLNESS: 65 year old white female came to the emergency room on 04/15/21, yesterday with shortness of breath. The patient had atrial fibrillation with rapid ventricular response. The patient chest x-ray showed bilateral lower lobe infiltrate along with pleural effusions. Physical exam revealed leg edema with weight gain. The patient had BNP of nearly 900. Atrial blood gasses showed pO2 81, pCo2 38, pH 7.45 with 96% saturation on room air. The patient was afebrile. She never did have any chills or fever. WBC was 8,500. REVIEW OF SYSTEMS: CONSTITUTIONAL: No night sweats. Fatigue and weakness. No fever or chills. HEENT: Eyes: No visual changes. No eye pain. No eye discharge. ENT: No sinus drainage. No epistaxis. No sinus pain. No sore throat. No odynophagia. No ear pain. No congestion. RESPIRATORY: Mild cough as usual, no congestion. No hemoptysis. Shortness of breath. CARDIOVASCULAR: No angina symptoms. No CHF symptoms. No atypical chest pain for CAD. No palpitations. No orthopnea. Questionable PND. GASTROINTESTINAL: No abdominal pain. No nausea or vomiting. No diarrhea or constipation. No hematemesis. No hematochezia. Appetite is acceptable. GENITOURINARY: No urgency. No frequency. No dysuria. No hematuria. No obstructive symptoms. No discharge. No pain. No significant abnormal bleeding. MUSCULOSKELETAL: No musculoskeletal pain. No joint swelling. Generalized weakness. NEUROLOGICAL: No headache. No neck pain. No syncope. No seizures. No dizziness. PSYCHIATRIC: Not anxious. No depression. No suicidal thoughts. No homicidal thoughts. SKIN: No rash. No lesions. No wounds. ENDOCRINE: No unexplained weight loss. No weight gain. HEMATOLOGIC/LYMPHATIC: No anemia. No purpura. No petechiae. No prolonged or excessive bleeding. No palpable lymph nodes. MEDICATIONS: Metformin Xanax Ferrous Sulfate Hydrocodone Apixaban Duloxetine Lisinopril Diltiazem Albuterol Bumetanide Potassium Sotalol Tramadol ALLERGIES: Ibuprofen PAST MEDICAL HISTORY/PAST SURGICAL HISTORY: History of atrial fibrillation, status post ablation 2013 Recurrence of atrial fibrillation Dyslipdiemia Hypertension Morbid obesity Noncompliance with all aspects of medical care. Depression Diabetes Mellitus Generalized anxiety disorder Metabolic syndrome Osteoarthritis Gastri bypass 6 years ago Ventral hernia repair PHYSICAL EXAMINATION: GENERAL: The patient is oriented to time, place and person. No distress. VITAL SIGNS: Temperature 96.9, pulse 98 irregular, respiratory rate 20, blood pressure 130/86 and pulse ox 96% on 2 liters. HEENT: Head normocephalic, atraumatic. Eyes: Extraocular muscles are intact. Pupils are equal, round and reactive to light and accommodation. Ears: No lesions. Nose appeared normal. Throat: No exudate or erythema. NECK: Supple. No JVD, no carotid bruit. No lymphadenopathy or thyromegaly. LUNGS: Decreased breath sounds with bilateral creps at the bases. Clear to auscultation. Percussion note normal. Chest symmetrical. HEART: S1, S2, questionable S3. Irregular rate 110 per minute. No murmurs. No cyanosis or clubbing. No ascites. Pulses: Dorsalis pedis and posterior tibial pulses +1 bilaterally somewhat feeble. ABDOMEN: Soft. Nontender. Bowel sounds active. No CVA tenderness. No mass felt. EXTREMITIES: Trace to pitting edema. Full range of motion of all extremities, equal. NEUROLOGIC: No focal deficit. Cranial nerves II through XII are grossly intact. No headache, no double vision or headache. SKIN: Not dry. Intact. Turgor - normal. LYMPHATIC: No palpable lymph nodes/no lymphedema. MUSCULOSKELETAL: Normal joints with no swelling. Muscle tone is normal. LABS: Hgb 11.6, hct 36, WBC 4,600 normal differential, creatinine 0.7, BUN 15, potassium 3.2. EKG showed atrial fibrillation with rate of 100 per minute with no acute changes noted. Chest x-ray bilateral pleural effusion, infiltrate lower lobes. Glucose 143 yesterday, this morning 120. PROBNP 985 yesterday. Blood gasses reported earlier I think were probably done on 2 liters. On room air the patient's oxygen saturation was 90% on admission in ER with blood pressure 144/100. ASSESSMENT: 1. Atrial fibrillation with rapid ventricular response 2. Early CHF 3. Questionable bilateral pneumonia, COVID 19 chest x-ray from pulmonary scarring 4. COVID 19 nearly 2 months ago 5. Status post ablation 2012 6. Morbid obesity 7. Dyslipidemia 8. Hypertension 9. Noncompliance of all aspects of medical care 10. Depression 11. Diabetes Mellitus 12. Gastric bypass 6 years ago 13. Generalized osteoarthritis RECOMMENDATIONS: 1. Continue IV Bumex as ordered 2. Telemetry 3. IV Lanoxin 0.25mg to control the rate after the patient's medications, Cardizem given this morning the rate has slowed down to 90-110 per minute 4. Continue antibiotics even though the usefulness is doubtful. 5. Continue the rest of the medications like Lisinopril, Azithromycin, Apixaban 6. The patient is advised to lose weight, weight loss diet discussed. 7. DASH diet with low salt diet discussed 8. Elevate the legs at night 9. Advised Cardiac rehab or cardiopulmonary rehab CONDITION: Stable for now. Will follow. ADDENDUM: The patient has been given Decadron 4mg IM daily and today. Going to have an ABG on room air tomorrow morning along with an EKG. MTDD
[2021-04-17] MEDS: OMNICEF PO SCH (20:31)
[2021-04-18] MEDS: VENTOLIN HFA (PER PUFF-WITH SPACER) IH SCH ×3 (04:50→13:58)
[2021-04-18] MEDS: K-DUR PO SCH ×3 (08:35→17:32)
[2021-04-18] MEDS: MICRO-K CAP PO SCH (08:35)
[2021-04-18] MEDS: XANAX PO SCH (08:35)
[2021-04-18] MEDS: CYMBALTA PO SCH (08:35)
[2021-04-18] MEDS: OMNICEF PO SCH (08:35)
[2021-04-18] MEDS: FERROUS SULFATE PO SCH (08:35)
[2021-04-18] MEDS: ULTRAM PO SCH (08:35)
[2021-04-18] MEDS: BETAPACE PO SCH (08:35)
[2021-04-18] MEDS: ZITHROMAX PO SCH (08:35)
[2021-04-18] MEDS: NORCO 5-325 PO SCH (08:35)
[2021-04-18] MEDS: ZESTRIL PO SCH (08:35)
[2021-04-18] MEDS: CARDIZEM PO SCH ×2 (08:35→08:36)
[2021-04-18] MEDS: DECADRON IM SCH (08:36)
[2021-04-18] MEDS: ELIQUIS PO SCH (08:36)
--- NOTE | 2021-04-18 09:01 | PCM.PROG ---
Attending Provider: ATTENDING PROVIDER: Dr. YADIEL JACKSON This patient is seen with Nina Duggan, Nurse Practitioner. DATE OF SERVICE: 04/18/21 SUBJECTIVE: This 65 year old /WHITE F was hospitalized 04/16/21. The patient had heart heart rate of 130 through the night while at rest. She was asymptomatic. ABG on room air yesterday pO2 68. 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 She has three step schedule for today. I feel she will qualify for home O2. REVIEW OF SYSTEMS: CONSTITUTIONAL: No night sweats. No fatigue, malaise, lethargy. No fever or chills. HEENT: Eyes: No visual changes. No eye pain. No eye discharge. ENT: No runny nose. No epistaxis. No sinus pain. No odynophagia. No congestion. RESPIRATORY: Cough, no congestion. No hemoptysis. Shortness of breath. CARDIOVASCULAR: No angina symptoms. No CHF symptoms. No atypical chest pain for CAD. Palpitations. No orthopnea.. GASTROINTESTINAL: No abdominal pain. No nausea or vomiting. No diarrhea or constipation. No hematemesis. No hematochezia. GENITOURINARY: No urgency. No frequency. No dysuria. No hematuria. No obstructive symptoms. No discharge. No pain. No significant abnormal bleeding. MUSCULOSKELETAL: No musculoskeletal pain; no joint swelling. NEUROLOGICAL: Awake, alert, oriented to time, place and person. No headache. No neck pain. No syncope. No seizures. No dizziness. PSYCHIATRIC: Not anxious. No depression. No suicidal thoughts. No homicidal thoughts. SKIN: No rash. No lesions. No wounds. ENDOCRINE: No unexplained weight loss. No weight gain. HEMATOLOGIC/LYMPHATIC: No anemia. No purpura. No petechiae. No prolonged or excessive bleeding. No palpable lymph nodes. PHYSICAL EXAMINATION: GENERAL: The patient is awake, alert and oriented, sitting in bed in no distress. VITAL SIGNS: Temperature 97 F, Pulse 92, Respiratory Rate 12, BP 136/93, Pulse Ox 96% HEENT: Head normocephalic, atraumatic. Eyes: Extraocular muscles are intact. Pupils are equal, round and reactive to light and accommodation. Ears: No lesions. Nose appeared normal. Throat: No exudate or erythema. NECK: Supple. No JVD, no carotid bruit. No lymphadenopathy or thyromegaly. LUNGS: Diminished breath sounds. Clear to auscultation. Percussion note normal. Chest symmetrical. HEART: S1, S2, no S3. Irregular heart rate. No murmurs. No cyanosis or clubbing. No ascites. Pulses: Dorsalis pedis and posterior tibial pulses +1 to +2 both sides. ABDOMEN: Soft. Non-tender. Bowel sounds active. No CVA tenderness. No mass felt. EXTREMITIES: No edema. Full range of motion of all extremities, equal. NEUROLOGIC: No focal deficit. Cranial nerves II through XII are grossly intact. No headache. No double vision. SKIN: Not dry. Intact. Turgor-normal. LYMPHATIC: No palpable lymph nodes/no lymphedema. MUSCULOSKELETAL: Normal joints with no swelling. Muscle tone is normal. LAB REVIEW: 04/17/21 04:25 04/17/21 04:25 ASSESSMENT: Please see below. 1. Atrial fibrillation 2. COVID fibrosis 3. COVID 19 12-21 4. Obesity 5. Hypertension PLAN: 1. Possible discharge today 2. Will discuss medication changes 3. Three step today 4. Symbicort 160 two puffs BID Plan and coordination of the patient's care discussed in the presence of Instructional Facilitator and nurse. EDUCATION: CONDITION: SCRIBED BY: Jordon VENCES scribed while in presence of service performed by Dr. De/Nina Duggan APRN on 04/18/21 ([id number])
[2021-04-18] MEDS: BUMEX IVP SCH (09:15)
[2021-04-18] MEDS ORDERED: SYMBICORT 160-4.5 MCG INHALER IH SCH (09:30)
[2021-04-18] MEDS: HUMULIN R SUBCUT PRN ×2 (12:17→17:32)
[2021-04-18 15:40] VITALS: BP 129/88; TEMP 97.5
--- NOTE | 2021-04-20 17:35 | PCM.DC ---
Final Diagnosis: Atrial Fib with Rapid Ventricular Response Post Covid infection -Dyspnea CHF stable Physical Exam Appearance: Ill-appearing, No pain distress and Obese Ill-appearing: Mild Pain Distress: None Eyes: MICKY, EOMI and Conjunctiva clear ENT: Ears normal, Nose normal and Oropharynx normal Neck: Supple Respiratory: Airway patent, Breath sounds clear and Breath sounds diminished Cardiovascular: Irregular rhythm GI/: Soft, Nontender and No masses Musculoskeletal: Normal strength, ROM intact and No edema Skin: Warm, Dry and Normal color Neurological: Sensation intact, Motor intact, Reflexes intact, Cranial nerves intact, Alert and Oriented Psychiatric: Affect appropriate and Mood appropriate (1) Atrial fibrillation: Status: Acute Code(s): I48.91 - Unspecified atrial fibrillation SNOMED Code(s): 00422982 (2) Volume overload: Status: Acute Code(s): E87.70 - Fluid overload, unspecified SNOMED Code(s): 68297357 (3) Post-COVID chronic dyspnea: Status: Acute Code(s): R06.09 - Other forms of dyspnea; U09.9 - Post COVID-19 condition, unspecified SNOMED Code(s): 3199983081 Reason for Hospitalization: Admitted to hospital through the ER for evaluation and treatment of Dyspnea assoc with Atrial fib RVR . Dr De consulted, decided she should be admitted for additional evaluation and treatment. Meds administered, atrial fib was controlled Prognosis/Condition at Discharge: Fair Medications at Discharge: Ambulatory Orders Medication Instructions Recorded metformin 1,000 mg tablet 1,000 mg PO BID 10/19/13 multivitamin (Daily Multi-Vitamin) 1 tab PO DAILY 03/27/14 alprazolam 0.25 mg tablet 0.25 mg PO BID 09/16/14 ferrous sulfate 324 mg (65 mg 324 mg PO DAILY 09/16/14 iron) tablet,delayed release hydrocodone 5 mg-acetaminophen 325 1 ea PO BID 09/16/14 mg tablet (Lortab) apixaban 5 mg tablet (Eliquis) 5 mg PO BID 09/08/19 duloxetine 60 mg capsule,delayed 60 mg PO QDAY 09/08/19 release (Cymbalta) lisinopril 40 mg tablet 40 mg PO QDAY 09/08/19 diltiazem HCl 30 mg tablet 90 mg PO Q12HR 03/12/21 albuterol sulfate 90 mcg/actuation 2 puff INHALATION QID #18 g 03/14/21 aerosol inhaler (ProAir HFA) bumetanide 1 mg tablet 1 mg PO DAILY #30 tab 03/14/21 potassium chloride 10 mEq 10 meq PO DAILY #30 tab 03/14/21 tablet,extended release (K-Tab) sotalol 80 mg tablet (Betapace) 40 mg PO BID #60 tab 03/14/21 tramadol 50 mg tablet 50 mg PO DAILY 04/15/21 diltiazem HCl 120 mg tablet 120 mg PO Q12H #60 tab 04/18/21 (Cardizem) prednisone 10 mg tablet 10 mg PO DAILY #5 tab 04/18/21 Lab/Diagnostics: See lab section Education Provided to Patient and Family: YES Follow-ups: Dr De post hospital Discharge Disposition: Home Hospital Course: This 65 year old /WHITE F was hospitalized 04/16/21 through the ER for evaluation and treatment of Dyspnea assoc with Atrial fib RVR .Dr De cons ulted, decided she should be admitted for additional evaluation and treatment. The patient had heart heart rate of 130 through the night while at rest. She was asymptomatic. ABG on room air yesterday pO2 68. 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 She has three step schedule prior to discharge and it is felt she will qualify for home O2. Meds administered, atrial fib was controlled Plan: Discharge planning for home meds, home oxygen and follow up post discharge
== END 2021-04-18 17:55 | disposition home or self-care (01) | DRG 204 ==
LOC: ED 22:00 → MEDSURG A 04-16 00:16
PROVIDERS: ADMIT Family Medicine; ATTEND Emergency Medicine
DX: I50.20 Unspecified systolic (congestive) heart failure; Z99.81 Dependence on supplemental oxygen; I10 Essential (primary) hypertension; F41.1 Generalized anxiety disorder; E11.9 Type 2 diabetes mellitus without complications; R06.02 Shortness of breath; Z51.81 Encounter for therapeutic drug level monitoring; G62.9 Polyneuropathy, unspecified; I48.91 Unspecified atrial fibrillation; Z79.899 Other long term (current) drug therapy; U09.9 Post COVID-19 condition, unspecified; E87.70 Fluid overload, unspecified; E78.5 Hyperlipidemia, unspecified; Z79.01 Long term (current) use of anticoagulants; R53.1 Weakness; R06.09 Other forms of dyspnea